=== PATIENT | male | born 1965 | race Caucasian/White ===

== ENCOUNTER 2019-04-07 09:22 | Observation (INO) | payer OTHER ==
[2019-04-07] MEDS ORDERED: SODIUM CHLORIDE 0.9% 1,000 ML IV STA (10:14)
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
[2019-04-07 10:54] LABS: Appearance,Urine Clear (Clear); Bilirubin,Urine Negative (Negative); Blood,Urine Negative (Negative); Color,Urine Yellow; Glucose,Urine (UA) Negative (Negative); Ketones,Urine Negative (Negative); Leukocyte Esterase,Urine Trace (Negative); Nitrite,Urine Negative (Negative); Protein,Urine Negative (Negative); Specific Gravity,Urine 1.025 (1.001-1.035); Squamous Epithelial Cell,Urine <1 /hpf (0-4); Urobilinogen,Urine <2.0 mg/dL (<2.0); WBC,Urine 3 /hpf (0-5)
[2019-04-07 10:56] LABS: Basophils % (A) 1 %; Eosinophils # (A) 0.1 k/uL (0-0.7); Eosinophils % (A) 2 %; HCT 35.3 % (39.0-53.0); HGB 11.9 gm/dL (13.0-17.5); Lymphocytes # (A) 1.2 k/uL (1.0-4.8); Lymphocytes % (A) 27 %; MCH 29.7 pg (25.0-35.0); MCHC 33.7 g/dL (31.0-37.0); Mean Platelet Volume 7.5; Monocytes # (A) 0.2 k/uL (0-1.0); Monocytes % (A) 5 %; Neutrophils # (A) 2.8 k/uL (1.3-7.7); Neutrophils % (A) 63 %; Platelet Count 208 k/uL (150-450); RBC 4.01 m/uL (4.30-5.90); RDW 11.9 % (11.5-15.5); WBC 4.4 k/uL (3.8-10.6)
[2019-04-07 11:05] LABS: ALT 32 U/L (4-49); AST 36 U/L (17-59); African American GFR (CKD) >90 (>60 ml/min/1.73 sqM); Albumin 3.8 g/dL (3.5-5.0); Alkaline Phosphatase 98 U/L (38-126); Amylase 69 U/L (30-110); Anion Gap 7 mmol/L; Blood Urea Nitrogen 42 mg/dL (9-20); Calcium 9.8 mg/dL (8.4-10.2); Carbon Dioxide 31 mmol/L (22-30); Chloride 102 mmol/L (98-107); Glucose 139 mg/dL (74-99); Non-African American GFR(CKD) >90 (>60 ml/min/1.73 sqM); Potassium 4.1 mmol/L (3.5-5.1); Sodium 140 mmol/L (137-145); Total Bilirubin 0.8 mg/dL (0.2-1.3); Total Protein 6.8 g/dL (6.3-8.2)
--- NOTE | 2019-04-07 12:06 | CT ---
EXAMINATION TYPE: CT abdomen pelvis w con DATE OF EXAM: 04/07/2019 COMPARISON: None INDICATION: Epigastric pain weight loss nausea vomiting DLP: 1009.7 mGycm, Automated exposure control for dose reduction was used. CONTRAST: 100 mL of Isovue 300. Study performed without Oral Contrast TECHNIQUE: Axial images were obtained from above the diaphragm to the pubic rami in the axial plane a t 5 mm thick sections. Reconstructed images are reviewed on the computer in the coronal plane. Exam is somewhat limited due to paucity of abdominal fat. FINDINGS: Limited CT sections are obtained the lung bases. The lung bases are clear. Small hiatal hernia is p resent. CT ABDOMEN: Liver: Normal Spleen: Normal Pancreas: Normal Adrenal glands: The adrenal glands are normal. Gallbladder: Normal Kidneys: No masses are evident. No hydronephrosis is present. No cysts are present. Delayed images were obtained through the kidneys, which remain unremarkable. Aorta: Normal Inferior vena cava: Normal. CT PELVIS: Loops of bowel within the abdomen and pelvis are normal. Few diverticuli are through the sigmoid co marie without evidence of acute diverticulitis. There are loops of bowel which are incompletely disten ded or lack oral contrast limiting their evaluation. Appendix: Normal as visualized. Urinary bladder: Normal. Genitourinary structures: Osseous structures: No suspicious lytic or sclerotic lesions. IMPRESSIONS: 1. Diverticulosis without acute diverticulitis. 2. Small hiatal hernia. 3. No other suspicious abnormality to account for epigastric pain or weight loss
[2019-04-07] MEDS ORDERED: NALOXONE 0.4 MG/ML 1 ML VIAL IV PRN (13:00)
[2019-04-07] MEDS ORDERED: ACETAMINOPHEN TAB 325 MG TAB PO PRN (13:00)
[2019-04-07] MEDS ORDERED: ONDANSETRON 4 MG/2 ML VIAL IVP PRN (13:00)
[2019-04-07 13:42] VITALS: RESP 18
[2019-04-07] MEDS: SODIUM CHLORIDE 0.9% 1,000 ML IV SCH (13:56)
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
[2019-04-08] MEDS: SODIUM CHLORIDE 0.9% 1,000 ML IV SCH (05:11)
[2019-04-08 07:54] VITALS: TEMP 97.6
[2019-04-08 11:38] VITALS: BMI 22.7
[2019-04-08] MEDS ORDERED: LIDOCAINE 1% INJ 10MG/ML (20 ML MDV) ONE (14:14)
[2019-04-08] MEDS ORDERED: PROPOFOL 10 MG/ML 20 ML VIAL IV ONE (14:14)
[2019-04-08] MEDS ORDERED: IV FLUID CONTINUATION 1,000 ML IV ONE (14:17)
--- NOTE | 2019-04-08 14:33 | P.PCN ---
Date of Procedure: 04/08/19 Procedure(s) Performed: BRIEF HISTORY: Patient is a 54-year-old, pleasant, white male admitted hospital with severe progressive dysphagia for the last 2 years duration. He lost approximately 70 pounds since onset of the symptoms. He has severe passive regurgitation and occasional heartburn. CT of abdomen was negative. His and scheduled for an upper endoscopy to evaluate further. PROCEDURE PERFORMED: Esophagoscopy with biopsy and dilation. PREOPERATIVE DIAGNOSIS: Progressive dysphagia to solids and weight loss of 70 pounds for the last 2 years duration. IV sedation per anesthesia. PROCEDURE: After informed consent was obtained, the patient was brought into the endoscopy unit. IV sedation was administered by Anesthesia under continuous monitoring. Initially the Olympus GIF-140 video endoscope was inserted into the mouth. Esophagus intubated without any difficulty. It was gradually advanced into the distal esophagus and there was a tight stricture identified at 40 cm from the incisors. The scope could not be advanced through the stricture. At this time I proceeded with a balloon dilation using 8-10 mm TTS balloon for total of 90 seconds and a sequential fashion. There were thickened folds noted in the distal esophagus at the site of esophageal stricture. Despite dilation was still not able to advance the scope into the stomach. Multiple biopsies were done from the mucosal folds of the distal esophagus. No obvious masses identified. The GE junction was located at 39 cm from the incisors. The rest of the esophagus appeared normal and the patient tolerated the procedure well. IMPRESSION: 1. Tight distal esophageal stricture with mucosal erythema, edema and thickened mucosal folds status post balloon dilation using 8-10 mm TTS balloon as described above. 2. Scope could not be advanced into the stomach.. RECOMMENDATIONS: The findings of this examination were discussed with the patient as well as his family. He'll remain on a clear liquid diet. We'll start him on Protonix 40 mg twice daily. He can be discharged home today or tomorrow with outpatient follow-up in one week..
[2019-04-08 15:37] VITALS: BP 120/63; PULSE 68
[2019-04-08] MEDS ORDERED: PANTOPRAZOLE 40 MG/10 ML VIAL IVP SCH (21:00)
--- NOTE | 2019-04-12 16:37 | HP ---
HISTORY AND PHYSICAL HISTORY OF PRESENT ILLNESS: A 54-year-old white male presents with nausea, vomiting, weight loss, ongoing for a year, went to PCP, told him to come to the ER. Had intermittent epigastric pain, 40 pounds loss in 6 months, unable to keep anything down. 60 pounds weight loss in 6 months. Unable to keep any liquid and solids down. PAST MEDICAL HISTORY: History of splenectomy and pyloric stenosis as a kid. REVIEW OF SYSTEMS: Fourteen-point review of systems negative except for mentioned in HPI. VITAL SIGNS: Temp 97.1, respiratory rate 16 to 18, blood pressure 120s to 130s over 70s to 80. 100% on room air. Pulse is 70s to 80s. GI soft, nontender. NEUROLOGIC: Cranial nerves are intact. PSYCH: Fair mood and affect. SKIN: Warm and dry. ABDOMEN: Soft, nontender. White count 4.4, hemoglobin 11.9, BUN 42, creatinine 0.95. UA is negative. ASSESSMENT: Weight loss, nausea, vomiting, epigastric pain, dehydration. Admit the patient. Rehydrate him. Get the EGD. Further orders pending Gastroenterology consult for an EGD recommendations. MMODL / IJN: [id number] /
--- NOTE | 2019-04-14 06:10 | DS ---
DISCHARGE SUMMARY A 54-year-old white male who was admitted for progressive dysphagia over the past 2 years, losing 70 pounds. He has severe passive regurgitation and heartburn. CT was negative. His EGD was scheduled and performed it. Had esophagitis with some biopsies, was given Protonix 40 mg a day and sent home. He also had a tight stricture at the lower esophageal stomach border for which patient had esophageal stricture repair with multiple biopsies. Biopsies showed high-grade dysplasia, felt to await further pathology where it was sent to the [facility]. He will continue on Protonix 40 mg b.i.d. and discharged home, have to follow up in the office after pathology from [facility] is back. No smoking. No late night eating. Head of bed elevation. MMODL / IJN: [id number] /
== END 2019-04-08 16:05 | disposition home or self-care (01) ==
LOC: EC 09:22 → 1SOBS 13:07
PROVIDERS: ADMIT Family Medicine; ATTEND Family Medicine
DX: K22.2 Esophageal obstruction (principal); R13.10 Dysphagia, unspecified; R63.4 Abnormal weight loss; E86.0 Dehydration; K57.90 Diverticulosis of intestine, part unspecified, without perforation or abscess without bleeding; Z87.738 Personal history of other specified (corrected) congenital malformations of digestive system; Z90.81 Acquired absence of spleen
CPT/HCPCS: 96360; 99285; 36415; 88305; 80053; 82150; 83690; 85025; 81001; 74177; 43239; 43249; G0378 ×2; J2001; J2704; Q9967; C1726

== ENCOUNTER 2019-06-05 06:29 | Day surgery (SDC) | payer OTHER ==
[~2019-06-05 06:29] MED LIST: LACTATED RINGERS 1,000 ML IV SCH; LIDOCAINE 1% (10MG/ML) FOR IV START INTRADERMA PRN
[2019-06-05 06:43] VITALS: RESP 16; TEMP 97.4
[2019-06-05] MEDS ORDERED: LIDOCAINE 1% INJ 10MG/ML (20 ML MDV) ONE (06:59)
[2019-06-05] MEDS ORDERED: PROPOFOL 10 MG/ML 20 ML VIAL IV ONE (06:59)
--- NOTE | 2019-06-05 07:25 | P.PCN ---
Date of Procedure: 06/05/19 Procedure(s) Performed: BRIEF HISTORY: Patient is a 54-year-old, pleasant, white male scheduled for an upper endoscopy for evaluation of progressive dysphagia to solids and weight loss for the last 1 year duration. He had an upper endoscopy done by me in April of this year that revealed a tight distal esophageal stricture that was dilated with a 10 mm balloon but the scope could not be advanced any further. Biopsies revealed squamocolumnar mucosa with high-grade dysplasia. His and his and scheduled for repeat upper endoscopy with biopsies for definitive diagnosis.. PROCEDURE PERFORMED: Esophagoscopy with multiple biopsies and dilation. PREOPERATIVE DIAGNOSIS: Distal esophageal stricture with high-grade dysplasia on recent upper endoscopy. IV sedation per anesthesia. PROCEDURE: After informed consent was obtained, the patient was brought into the endoscopy unit. IV sedation was administered by Anesthesia under continuous monitoring. Initially the Olympus GIF-140 video endoscope was inserted into the mouth. Esophagus intubated without any difficulty. It was gradually advanced into the distal esophagus and at 39-40 cm from the incisors there was a very tight esophageal stricture identified with small amount of retained liquid in the proximal esophagus. The scope could not be advanced to the stricture. At this time I proceeded with a balloon dilation using 8-10 mm TTS balloon in a sequential fashion for 90 seconds. Following this despite multiple attempts I was not able to advance the scope into the stomach. At this time I proceeded with multiple biopsies of the esophageal stricture with the mucosa appeared very friable, erythematous with thickened mucosal folds but no obvious masses identified. There was mild dilation of the esophagus just proximal to the stricture area and The rest of the esophagus appeared normal and the patient tolerated the procedure well. IMPRESSION: 1. Tight distal esophageal stricture with mucosal erythema friability and thickened folds but no obvious mass status post balloon dilation followed by multiple biopsies to rule out malignancy. 2. Scope could not be advanced into the stomach and duodenum. RECOMMENDATIONS: The findings of this examination were discussed with the patient as well as his family. He will be seen in office in 5 days to discuss the biopsy results.
[2019-06-05 07:52] VITALS: BP 106/58; PULSE 57
== END 2019-06-05 08:24 | disposition home or self-care (01) ==
LOC: ORWHC2ENDO 06:29
PROVIDERS: ATTEND Internal Medicine Gastroenterology
DX: C15.5 Malignant neoplasm of lower third of esophagus (principal); K22.2 Esophageal obstruction; Z79.899 Other long term (current) drug therapy; Z98.890 Other specified postprocedural states; Z87.81 Personal history of (healed) traumatic fracture
CPT/HCPCS: 88305; 43239; 43249; J2001; J2704; C1726

== ENCOUNTER → 2019-06-20 | Outpatient (CLI) | payer OTHER ==
--- NOTE | 2019-06-23 06:53 | PE ---
EXAMINATION TYPE: PET CT fusion skull to thigh DATE OF EXAM: 06/20/2019 COMPARISON: CT abdomen and pelvis April 07, 2019. HISTORY: Esophageal cancer TECHNIQUE: Following the intravenous administration of 12.17 mCi of F-18 FDG, whole body images are performed from the skull base to the midthigh. Images are reviewed on the computer in the coronal, a xial, and sagittal planes. Reconstructed rotating images are created on independent workstation and reviewed on the computer. A noncontrast CT is performed in conjunction with the PET scan. SCAN: Initial Scan FINDINGS: SKULL BASE AND NECK: No suspicious hypermetabolic uptake. CHEST, MEDIASTINUM, AND HILAR REGION: There is concentric wall thickening distal esophagus redemonstr ated just above diaphragm beginning near axial image 127 through 136, hypermetabolic uptake is presen t images 127 through 132, max SUV is 6.65 on image 131. No additional areas of suspicious hypermetabolic uptake are present in the remainder of the thorax. N o suspicious adjacent lymph nodes seen. No abnormal uptake or extension below the diaphragm clearly i dentified. ABDOMEN AND PELVIS: Normal excretion is seen. Patient has very little intra-abdominal fat. No suspici ous hypermetabolic uptake. OSSEOUS STRUCTURES: No suspicious hypermetabolic uptake. OTHER CT: Patient has very little intra-abdominal fat. No significant incidental findings. IMPRESSION: Hypermetabolic uptake in the distal esophagus corresponds to known neoplasm. No metastati c disease is evident.
== END | disposition home or self-care (01) ==
LOC: RADPETMAIN 14:08
PROVIDERS: ATTEND Internal Medicine Hematology & Oncology
DX: C15.5 Malignant neoplasm of lower third of esophagus (principal)
CPT/HCPCS: 78815; A9552

== ENCOUNTER → 2019-09-18 | Outpatient (CLI) | payer OTHER ==
--- NOTE | 2019-09-21 09:18 | PE ---
EXAMINATION TYPE: PET CT fusion skull to thigh DATE OF EXAM: 09/18/2019 COMPARISON: Prior PET/CT June 20, 2019. Prior CT abdomen and pelvis April 07, 2019. HISTORY: Esophageal cancer progress study originally diagnosed and endoscopy with biopsy April and recently completed chemotherapy and radiation treatment per patient. TECHNIQUE: Following the intravenous administration of 10.37 mCi of F-18 FDG, whole body images are performed from the skull base to the midthigh. Images are reviewed on the computer in the coronal, a xial, and sagittal planes. Reconstructed rotating images are created on independent workstation and reviewed on the computer. A noncontrast CT is performed in conjunction with the PET scan. SCAN: Subsequent Scan FINDINGS: SKULL BASE AND NECK: Marked symmetric bilateral uptake at level of the masseter muscles along with s ome mild uptake at the level of the tongue is presumed product of significant recent use of mouth pos sibly from ingesting food just prior to exam. This makes examination suboptimal. No areas of new suspicious hypermetabolic uptake. CHEST, MEDIASTINUM, AND HILAR REGION: Persistent moderate to severe concentric wall thickening in the distal esophagus just above diaphragm with mild hypermetabolic uptake, max SUV less than 2.5. No new areas of suspicious hypermetabolic uptake. ABDOMEN AND PELVIS: Normal excretion is present. No new areas of abnormal hypermetabolic uptake. OSSEOUS STRUCTURES: No new areas of abnormal hypermetabolic uptake. OTHER CT: Patient has very little intra-abdominal fat making evaluation suboptimal similar to prior. Some new posterior left basilar linear atelectasis just above diaphragm is present. Osseous structure s are intact. IMPRESSION: Suboptimal study, no residual or new areas of abnormal hypermetabolic uptake to suggest a ctive malignancy are identified. Complete positive treatment response.
== END | disposition home or self-care (01) ==
LOC: RADPETMAIN 11:19
PROVIDERS: ATTEND Internal Medicine Hematology & Oncology
DX: C15.5 Malignant neoplasm of lower third of esophagus (principal)
CPT/HCPCS: 78815; A9552

== ENCOUNTER → 2020-07-16 | Outpatient (CLI) | payer OTHER ==
--- NOTE | 2020-07-18 08:56 | PE ---
EXAMINATION TYPE: PET CT fusion skull to thigh DATE OF EXAM: 07/16/2020 COMPARISON: Prior PET/CT September 18, 2019 and older studies HISTORY: Esophageal cancer progress study originally diagnosed by endoscopy with biopsy April and c ompleted chemotherapy and radiation treatment in July or August 2019 per patient. TECHNIQUE: Following the intravenous administration of 13.76 mCi of F-18 FDG, whole body images are performed from the skull base to the midthigh. Images are reviewed on the computer in the coronal, a xial, and sagittal planes. Reconstructed rotating images are created on independent workstation and reviewed on the computer. A localization and attenuation correction CT is performed in conjunction with the PET scan. Blood glucose level equals 98. SCAN: Subsequent Scan FINDINGS: SKULL BASE AND NECK: No areas of new suspicious hypermetabolic uptake on current study. CHEST, MEDIASTINUM, AND HILAR REGION: Persistent moderate to severe concentric wall thickening in the distal esophagus just above diaphragm from axial image 124 through 135. Prior visualized mild hyperm etabolic uptake appear to correspond to central aspect or lumen on prior study. On current study ther e is new more focal mild hypermetabolic uptake along the left posterior aspect centered image 129, ma x SUV is 2.87. Recurrent active neoplasm needs to be considered. ABDOMEN AND PELVIS: Normal excretion is present. No new areas of abnormal hypermetabolic uptake. OSSEOUS STRUCTURES: No new areas of abnormal hypermetabolic uptake. OTHER CT: Patient has very little intra-abdominal fat making evaluation suboptimal similar to prior. Lungs are currently clear. No new findings are evident. IMPRESSION: New suspicious focal mild increased hypermetabolic uptake worrisome for local active neop lastic recurrence distal esophageal level. No new metastatic disease noted.
== END | disposition home or self-care (01) ==
LOC: RADPETMAIN 09:02
PROVIDERS: ATTEND Family Medicine
DX: C15.9 Malignant neoplasm of esophagus, unspecified (principal)
CPT/HCPCS: 78815; A9552

== ENCOUNTER 2020-07-25 09:16 | Day surgery (SDC) | payer OTHER ==
[2020-07-21 15:01] VITALS: BMI 23.1
[2020-07-25 09:35] VITALS: TEMP 97.8
[2020-07-25] MEDS ORDERED: LIDOCAINE 1% INJ 10MG/ML (20 ML MDV) ONE (10:00)
[2020-07-25] MEDS ORDERED: PROPOFOL 10 MG/ML 20 ML VIAL IV ONE (10:00)
--- NOTE | 2020-07-25 10:20 | P.PCN ---
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 Lately has been complaining of dysphagia for the last 6 months duration with weight loss of 20 pounds. He is on a soft diet. He had a PET scan that he can go that did show increased uptake in the distal esophagus and no other metastasis noted.. He scheduled for an upper endoscopy with dilation today. PROCEDURE PERFORMED: Esophagoscopy with biopsy and dilation. PREOPERATIVE DIAGNOSIS: History of esophageal cancer diagnosed have a 2020 status post chemo/radiation therapy/now with progressive dysphagia to solids. IV sedation per anesthesia. PROCEDURE: After informed consent was obtained, the patient was brought into the endoscopy unit. IV sedation was administered by Anesthesia under continuous monitoring. Initially the Olympus GIF-140 video endoscope was inserted into the mouth. Esophagus intubated without any difficulty. It was gradually advanced into the distal esophagus. There was a tight esophageal stricture identified at the scope could not be advanced through the stricture. The luminal diameter was about 84 mm. At this time I proceeded with balloon dilation. The balloon was passed through the stricture without any difficulty and was dilated to 8 mm, 9 mm and 10 mm sequentially for 90 seconds. Following this there was oozing identified and the site of dilation. I was not able to advance the scope into the stomach. The mucosa appeared slightly friable but there were no obvious mass identified. Multiple biopsies were done from the distal esophagus. The GE junction was located at 40 cm from the incisors. The rest of the esophagus appeared normal. The patient tolerated the procedure well. IMPRESSION: 1. Tight distal esophageal stricture with friable mucosa status post balloon dilation using 8, 9 and 10 mm TTS balloon as described above. 2. No obvious distal esophageal mass identified, however the scope could be advanced into the stomach because of the tight esophageal stricture. RECOMMENDATIONS: The findings of this examination were discussed with the patient as well as a family. He was advised to remain on a clear liquid diet today. We'll await biopsy results and he'll be seen in office in 2 weeks.
[2020-07-25 11:02] VITALS: BP 112/72; PULSE 56; RESP 16
== END 2020-07-25 11:27 | disposition home or self-care (01) ==
LOC: ORWHC2ENDO 09:16
PROVIDERS: ATTEND Internal Medicine Gastroenterology
DX: K22.2 Esophageal obstruction (principal); R63.4 Abnormal weight loss; Z85.01 Personal history of malignant neoplasm of esophagus; Z92.21 Personal history of antineoplastic chemotherapy; Z92.3 Personal history of irradiation; Z88.6 Allergy status to analgesic agent; Z79.899 Other long term (current) drug therapy
CPT/HCPCS: 88305; 43239; 43249; J2001; J2704; C1726

== ENCOUNTER 2020-11-30 11:14 | Day surgery (SDC) | payer OTHER ==
[2020-11-30 11:28] VITALS: TEMP 97.7
[2020-11-30] MEDS ORDERED: LACTATED RINGERS 1,000 ML IV ONE (11:28)
[2020-11-30] MEDS ORDERED: LIDOCAINE 1% INJ 10MG/ML (20 ML MDV) ONE (12:14)
[2020-11-30] MEDS ORDERED: PROPOFOL 10 MG/ML 20 ML VIAL IV ONE (12:14)
--- NOTE | 2020-11-30 12:26 | P.PCN ---
Date of Procedure: 11/30/20 Procedure(s) Performed: BRIEF HISTORY: Patient is a 55-year-old, pleasant, white male with history of esophageal adenocarcinoma diagnosed in May 2019, status post radiation as well as chemotherapy. An upper endoscopy done in June 2020 that showed tight distal esophagus which was dilated. He did well for a few months and now with worsening dysphagia to solids. Hence scheduled for an upper endoscopy with dilation today.. PROCEDURE PERFORMED: Esophagogastroduodenoscopy with dilation and biopsy PREOPERATIVE DIAGNOSIS: History of esophageal cancer diagnosed in 2019 status post chemoradiation therapy, now with worsening dysphagia. IV sedation per anesthesia. PROCEDURE: After informed consent was obtained, the patient was brought into the endoscopy unit. IV sedation was administered by Anesthesia under continuous monitoring. Initially the Olympus GIF-140 video endoscope was inserted into the mouth. Esophagus intubated without any difficulty. It was gradually advanced into the distal esophagus and there was a tight stricture noted. The scope could not be advanced and the stricture. The diameter of the opening was about 3 mm. At this time I proceeded with balloon dilation using 8-10 mm TTS balloon in a sequential fashion for 90 seconds. Following this there was some oozing noted at the site of dilation but I was not able to advance the scope into the stomach. The The GE junction was located at 39 cm from the incisors. There was no obvious mass identified. The mucosa appeared somewhat erythematous and thickened at the site of the stricture and biopsies were done from this area. The rest of the esophagus appeared slightly dilated with retained food in the st omach there was thoroughly aspirated. The patient tolerated the procedure well. . IMPRESSION: 1. Tight distal esophageal stricture status post balloon dilation using 8-10 mm balloon as described above. 2. Thickened folds in the distal esophagus but no obvious mass noted. Status post multiple biopsies. RECOMMENDATIONS: The findings of this examination were discussed with the patient as well as his family. He was advised to remain on a clear liquid diet today. Await biopsy results..
[2020-11-30 12:33] VITALS: RESP 16
[2020-11-30 13:00] VITALS: BP 129/83; PULSE 61
== END 2020-11-30 13:10 | disposition home or self-care (01) ==
LOC: ORWHC2ENDO 11:14
PROVIDERS: ATTEND Internal Medicine Gastroenterology
DX: K22.2 Esophageal obstruction (principal); Z85.01 Personal history of malignant neoplasm of esophagus; Z92.21 Personal history of antineoplastic chemotherapy; Z92.3 Personal history of irradiation; Z79.82 Long term (current) use of aspirin
CPT/HCPCS: 43239; 43249; J2001; J2704; 88305

== ENCOUNTER → 2020-12-16 | Outpatient (CLI) | payer OTHER ==
--- NOTE | 2020-12-21 10:10 | PE ---
Nuclear medicine PET/CT HISTORY: C 15.5, esophageal carcinoma, subsequent Patient received 13.4 mCi F-18 FDG intravenously in delayed scanning was performed from the skull bas e to the mid thighs. A localization and attenuation correction CT scan was performed, correlation to prior exam 07/16/2020 Chest and neck: There is no cervical or supraclavicular adenopathy. No mediastinal, axillary, or thompson r adenopathy. There is an interval development of circumferential wall thickening at the level of the distal esophagus, retained secretions are present within the esophagus. There is corresponding incre ase in the hypermetabolic uptake involving the distal esophagus, SUV is 4.9. There is soft tissue fabiola ng the cardiophrenic angle anteriorly with some mild associated uptake present, abnormality is pleura l-based and measures approximately 2 cm, SUV is 2.3, an interval finding. No pleural or pericardial e ffusion. ABDOMEN: No evident liver mass or upper abdominal adenopathy. No suspicious uptake. There is no ascit es. Patient is cachectic. Osseous structures show no suspicious uptake. Postop change suspected on the right ilium posteriorly on the right. Suspect physiologic uptake along the musculature of the proximal right lower extremity medially, SUV is 1.9-2. IMPRESSION: Interval development of hypermetabolic soft tissue which is pleural-based in the anterior aspect of the right lower hemithorax. Interval progression in hypermetabolic uptake at the level of the distal esophagus. Additional findings above.
== END | disposition home or self-care (01) ==
LOC: RADPETMAIN 07:37
PROVIDERS: ATTEND Internal Medicine Hematology & Oncology
DX: C15.5 Malignant neoplasm of lower third of esophagus (principal); M79.89 Other specified soft tissue disorders
CPT/HCPCS: 78815; A9552

== ENCOUNTER 2021-01-11 08:54 | Day surgery (SDC) | payer OTHER ==
[2021-01-09 09:51] VITALS: BMI 19.2
[2021-01-11 09:20] VITALS: RESP 16; TEMP 97.6
[2021-01-11] MEDS ORDERED: PROPOFOL 10 MG/ML 20 ML VIAL IV ONE (10:06)
[2021-01-11] MEDS ORDERED: LIDOCAINE 1% INJ 10MG/ML (20 ML MDV) ONE (10:06)
--- NOTE | 2021-01-11 10:19 | P.PCN ---
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 He was status post chemo followed by radiation therapy and subsequently developed a tight distal esophageal stricture. He underwent an EGD with dilation a month ago. Because of persistent symptoms he scheduled for repeat upper endoscopy with dilation today.. PROCEDURE PERFORMED: Esophagogastroduodenoscopy with dilation and biopsy. PREOPERATIVE DIAGNOSIS: Progressive dysphagia to solids and weight loss/distal esophageal stricture. IV sedation per anesthesia. PROCEDURE: After informed consent was obtained, the patient was brought into the endoscopy unit. IV sedation was administered by Anesthesia under continuous monitoring. Initially the Olympus GIF-140 video endoscope was inserted into the mouth. Esophagus intubated without any difficulty. It was gradually advanced into the distal esophagus where there was a tight esophageal stricture identified and the scope could not be advanced through the stricture. At this time I proceeded with balloon dilation using 10-12 mm TTS balloon in a sequential fashion for 30 seconds. Findings with dilation was still not able to advance the scope through the stricture. The mucosa of the stricture appeared friable but no mass lesion identified. Multiple biopsies were done from the distal esophageal stricture. The rest of the sophagus appeared normal. and the patient tolerated the procedure well. IMPRESSION: 1.. Tight distal esophageal stricture with thickened mucosal fold status post balloon dilation using 10-12 mm TTS balloon as described above. 2. Scope could not be advanced through the stricture. RECOMMENDATIONS: The findings of this examination were discussed with the patient is well as his family. He will remain on clear liquid diet today. await biopsy results. Follow with Dr. Whaley, as scheduled.
[2021-01-11 10:38] VITALS: BP 154/91; PULSE 68
== END 2021-01-11 10:46 | disposition home or self-care (01) ==
LOC: ORWHC2ENDO 08:54
PROVIDERS: ATTEND Internal Medicine Gastroenterology
DX: K22.2 Esophageal obstruction (principal); Z85.01 Personal history of malignant neoplasm of esophagus; Z92.21 Personal history of antineoplastic chemotherapy; Z92.3 Personal history of irradiation; F98.8 Other specified behavioral and emotional disorders with onset usually occurring in childhood and adolescence; F41.9 Anxiety disorder, unspecified; F32.9 Major depressive disorder, single episode, unspecified; Z88.6 Allergy status to analgesic agent; Z79.899 Other long term (current) drug therapy
CPT/HCPCS: 88305; 43239; 43249; J2001; J2704; C1726

== ENCOUNTER → 2021-02-03 | Outpatient (CLI) | payer OTHER ==
--- NOTE | 2021-02-03 12:36 | ECHOF ---
Referral Reason:Z01.818 Chemo exposure MEASUREMENTS -------- HEIGHT: 188.0 cm WEIGHT: 70.3 kg BP: RVIDd: 3.8 cm (< 3.3) IVSd: 1.2 cm (0.6 - 1.1) LVIDd: 5.4 cm (3.9 - 5.3) LVPWd: 1.3 cm (0.6 - 1.1) IVSs: 1.4 cm LVIDs: 4.0 cm LVPWs: 1.7 cm LAESV Index (A-L): 27.49 ml/m Ao Diam: 3.4 cm (2.0 - 3.7) AV Cusp: 2.4 cm (1.5 - 2.6) LA Diam: 2.9 cm (2.7 - 3.8) MV EXCURSION: 14.054 mm (> 18.000) MV EF SLOPE: 101 mm/s (70 - 150) EPSS: 1.0 cm MV E Jessee: 0.74 m/s MV DecT: 106 ms MV A Jessee: 1.01 m/s MV E/A Ratio: 0.73 RAP: 5.00 mmHg RVSP: 31.32 mmHg FINDINGS -------- Sinus rhythm. This was a technically good study. The left ventricular size is normal. There is mild concentric left ventricular hypertrophy. Overa ll left ventricular systolic function is low-normal with, an EF between 50 - 55 %. The right ventricle is mild to moderately enlarged. Normal LA size by volume 22+/-6 ml/m2. A mass adjacent to the LA was seen almost ao all views The right atrial size is normal. Eustachian valve seen in the right atrium (normal finding). Interatrial and interventricular septum intact. The aortic valve is trileaflet and appears structurally normal. There is no evidence of aortic regu rgitation. There is no evidence of aortic stenosis. No mitral regurgitation. Mild tricuspid regurgitation present. There is no evidence of pulmonary hypertension. The right v entricular systolic pressure, as measured by Doppler, is 31.32mmHg. There is no pulmonic regurgitation present. The aortic root size is normal. IVC Not well visulized. There is no pericardial effusion. CONCLUSIONS -------- 1. The left ventricular size is normal. 2. There is mild concentric left ventricular hypertrophy. 3. Overall left ventricular systolic function is low-normal with, an EF between 50 - 55 %. 4. The right ventricle is mild to moderately enlarged. 5. A mass adjacent to the LA was seen almost ao all views 6. Mild tricuspid regurgitation present. CHEF BROILER OR FRY: Lolis Arora RDCS
== END | disposition home or self-care (01) ==
LOC: RADECHMAIN 11:28
PROVIDERS: ATTEND Internal Medicine Hematology & Oncology
DX: I07.1 Rheumatic tricuspid insufficiency (principal)
CPT/HCPCS: 93306

== ENCOUNTER → 2021-02-03 | Day surgery (SDC) | payer OTHER ==
[2021-02-01 09:26] VITALS: BMI 18.4
[~2021-02-03] MED LIST changes: +BUPIVACAINE (PF) 0.25% 30 ML VIAL SQ ONE; +DEXAMETHASONE SOD PHOSPHATE 4 MG/ML 1 ML VIAL IV ONE; +HEPARIN SODIUM,PORCINE 100 UNIT/ML 5 ML VIAL IV ONE; +HEPARIN SODIUM,PORCINE/PF 5,000 UNIT/0.5 ML SYRINGE SQ PRN; +LIDOCAINE 1% INJ 10MG/ML (20 ML MDV) ONE; +MIDAZOLAM 2 MG/2 ML VIAL ONE; +ONDANSETRON 4 MG/2 ML VIAL ONE; +PROPOFOL 10 MG/ML 20 ML VIAL IV ONE; +Pre Op ABX Message 1 EACH MISC MISCELLANE ONE; +SUCCINYLCHOLINE CHLORIDE 100 MG/5 ML SYR IV ONE; +fentaNYL (PF) 50 MCG/ML 2 ML AMP ONE
--- NOTE | 2021-02-03 14:05 | P.OP ---
Date of Procedure: 02/03/21 Preoperative Diagnosis: Esophageal cancer Postoperative Diagnosis: Esophageal cancer Procedure(s) Performed: Mediport placement with fluoroscopy Anesthesia: PENELOPE Surgeon: Nimisha Perez Pathology: none sent Condition: stable Disposition: same day Indications for Procedure: 55-year-old male with recent diagnosis of esophageal cancer. After discussion with his oncologist, patient has opted for chemotherapy. He states that he is able to tolerate oral intake and is refusing PEG tube placement. Risks, benefits and alternatives were provided to the patient for Mediport placement. He is provided consent prior to attending the operating suite. Operative Findings: Appropriate flush and withdraw from Mediport site Description of Procedure: The patient was brought to the operating suite and placed in supine position on the operating table. Sedation was provided by anesthesia the patient underwent endotracheal intubation. The patient was then prepped and draped in regular sterile fashion. Local anesthetic was administered and the anticipated insertion site for venous access and anticipated pocket patient for Mediport. Introducer needle was placed and the right subclavian vein was accessed on first attempt. Guidewire was then placed. Guidewire location was confirmed under fluoroscopic guidance. At this point incision was made just below the guidewire and pocket for Mediport was created using cautery. Hemostasis was maintained. A tunnel was created from the guidewire insertion site to the pocket and catheter was placed through this tunnel. Under fluoroscopic guidance, dilator sheath was placed over the guidewire and into the subclavian vein. The catheter was then guided through the dilator sheath and was noted to be in appropriate position. The catheter was then cut and attached to the Mediport and locked into place. Kate needle was introduced and saline flush was noted to both flush and withdraw appropriately. The Mediport was then sutured into place on the right chest wall pectoralis fascia. This was completed with 2 separate 2-0 Prolene suture. Fluoroscopic guidance was used to confirm no kinking of the catheter. Heparin flush was then injected into the port. Wound was irrigated. Wound was then closed with 4-0 Vicryl subcuticular suture. Sterile dressing was applied. The patient was awakened in the operating suite and taken to postanesthesia care unit with pending chest x-ray.
[2021-02-03 14:06] VITALS: TEMP 97.9
--- NOTE | 2021-02-03 14:17 | FL ---
EXAMINATION TYPE: FL guided central line placemt HISTORY: Fluoroscopy time Impression: 1. Fluoroscopy support provided to the referring physician. 30 seconds provided.
--- NOTE | 2021-02-03 14:20 | XR ---
EXAMINATION TYPE: XR chest 1V DATE OF EXAM: 02/03/2021 COMPARISON: NONE HISTORY: Mediport placement TECHNIQUE: Single frontal view of the chest is obtained. FINDINGS: There is no focal air space opacity, pleural effusion, or pneumothorax seen. The cardiac silhouette size is within normal limits. The osseous structures are intact. Mediport catheter seen with the tip overlying the SVC. No overt failure. Heart size normal. Hyperinflation suggests COPD. IMPRESSION: No acute process.
[2021-02-03 14:28] VITALS: RESP 16
[2021-02-03 14:59] VITALS: BP 117/75; PULSE 71
== END | disposition home or self-care (01) ==
LOC: OR 11:29
PROVIDERS: ATTEND Surgery
DX: Z45.2 Encounter for adjustment and management of vascular access device (principal); C15.9 Malignant neoplasm of esophagus, unspecified
CPT/HCPCS: 36561; 77001; 71045; C1788; J2250; J1642; J1100; J2405; J2001; J3010; J0330; J2704; J1644

== ENCOUNTER → 2021-03-30 | Outpatient (CLI) | payer OTHER ==
--- NOTE | 2021-04-03 08:30 | PE ---
EXAMINATION TYPE: PET CT fusion skull to thigh DATE OF EXAM: 03/30/2021 COMPARISON: Prior PET/CT December 16, 2020 and older studies HISTORY: Esophageal cancer originally diagnosed in May 2019 Progress study. On chemotherapy currently. TECHNIQUE: Following the intravenous administration of 19.42 mCi of F-18 FDG, whole body images are performed from the skull base to the midthigh. Images are reviewed on the computer in the coronal, a xial, and sagittal planes. Reconstructed rotating images are created on independent workstation and reviewed on the computer. A localization and attenuation correction CT is performed in conjunction with the PET scan. Blood glucose level equals 131. SCAN: Subsequent Scan FINDINGS: SKULL BASE AND NECK: Symmetric increased uptake bilateral masseter muscles with increased superior d eep right sided uptake presumed product of chewing or eating meal prior to study. Correlate clinicall y. CHEST, MEDIASTINUM, AND HILAR REGION: Persistent moderate to severe concentric wall thickening in the distal esophagus just above diaphragm from axial image 116 through 127. Interval improvement in abno rmal hypermetabolic uptake with Max SUV 3.95 currently versus 4.92 on prior study. No new areas of abnormal hypermetabolic uptake. ABDOMEN AND PELVIS: Normal excretion is present. No new areas of abnormal hypermetabolic uptake. OSSEOUS STRUCTURES: No new areas of abnormal hypermetabolic uptake. OTHER CT: Patient has very little intra-abdominal fat making evaluation suboptimal similar to prior. Lungs remain clear. No new findings are evident. IMPRESSION: Partial positive treatment response as detailed above.
== END | disposition home or self-care (01) ==
LOC: RADPETMAIN 11:01
PROVIDERS: ATTEND Internal Medicine Hematology & Oncology
DX: C15.5 Malignant neoplasm of lower third of esophagus (principal)
CPT/HCPCS: 78815; A9552

== ENCOUNTER 2021-04-19 10:56 | Day surgery (SDC) | payer OTHER ==
[~2021-04-19 10:56] MED LIST changes: -BUPIVACAINE (PF) 0.25% 30 ML VIAL SQ ONE; -DEXAMETHASONE SOD PHOSPHATE 4 MG/ML 1 ML VIAL IV ONE; -HEPARIN SODIUM,PORCINE 100 UNIT/ML 5 ML VIAL IV ONE; -HEPARIN SODIUM,PORCINE/PF 5,000 UNIT/0.5 ML SYRINGE SQ PRN; -LIDOCAINE 1% INJ 10MG/ML (20 ML MDV) ONE; -MIDAZOLAM 2 MG/2 ML VIAL ONE; -ONDANSETRON 4 MG/2 ML VIAL ONE; -PROPOFOL 10 MG/ML 20 ML VIAL IV ONE; -Pre Op ABX Message 1 EACH MISC MISCELLANE ONE; -SUCCINYLCHOLINE CHLORIDE 100 MG/5 ML SYR IV ONE; -fentaNYL (PF) 50 MCG/ML 2 ML AMP ONE
[2021-04-19 11:23] VITALS: TEMP 97.8
[2021-04-19] MEDS ORDERED: LACTATED RINGERS 1,000 ML IV ONE (11:23)
[2021-04-19] MEDS ORDERED: ONDANSETRON 4 MG/2 ML VIAL ONE (11:34)
[2021-04-19] MEDS ORDERED: ONDANSETRON 4 MG/2 ML VIAL IVP ONE (11:36)
[2021-04-19] MEDS ORDERED: PROPOFOL 10 MG/ML 20 ML VIAL IV ONE (11:57)
[2021-04-19] MEDS ORDERED: LIDOCAINE 1% INJ 10MG/ML (20 ML MDV) ONE (11:57)
--- NOTE | 2021-04-19 12:18 | P.PCN ---
Date of Procedure: 04/19/21 Procedure(s) Performed: BRIEF HISTORY: Patient is a 56-year-old, pleasant, white male with history of recurrent distal esophageal adenocarcinoma initially diagnosed in May 2019. Initially had chemo and radiation therapy and subsequently developed recurrent 3 months ago. He is undergoing second bowel movement chemo. He is having progressive dysphagia to solids. Last EGD with dilation wasn't December 2020 that revealed a tight distal esophageal stricture which was dilated at that time. He did well for 3 months.. PROCEDURE PERFORMED: Esophagooscopy with dilation PREOPERATIVE DIAGNOSIS: Distal esophageal stricture/recurrent distal esophageal adenocarcinoma. IV sedation per anesthesia. PROCEDURE: After informed consent was obtained, the patient was brought into the endoscopy unit. IV sedation was administered by Anesthesia under continuous monitoring. Initially the Olympus GIF-140 video endoscope was inserted into the mouth. Esophagus intubated without any difficulty. It was gradually advanced into the esophagus was dilated and there was large amount of liquid material that was aspirated. There was tight distal esophageal stricture once again noted at 40 cm from the incisors with ulcerations noted. Despite multiple times I was unable to advance the scope was stricture. At this time I proceeded with balloon dilation using 10 and 11 mm balloon in the sequential fashion for 60 seconds. Following this there was oozing identified the site of dilation and hence further dilation was not performed. After the dilation was still not able to advance the scope through the stricture.. The rest of the esophagus appeared normal. The patient tolerated the procedure well. IMPRESSION: 1. Tight distal esophageal stricture with mucosal ulcerations noted at 40 cm from the incisors status post balloon dilation using 10 and 11 mm TTS balloon as described above. 2. Dilated esophagus with retained liquids. RECOMMENDATIONS: The findings of this examination were discussed with the patient as well as his family. He was advised to remain on a clear liquid diet for today. Advance as tolerated tomorrow..
[2021-04-19 12:46] VITALS: BP 111/74; PULSE 67; RESP 14
== END 2021-04-19 13:11 | disposition home or self-care (01) ==
LOC: ORWHC2ENDO 10:56
PROVIDERS: ATTEND Internal Medicine Gastroenterology
DX: C15.9 Malignant neoplasm of esophagus, unspecified (principal); K22.2 Esophageal obstruction
CPT/HCPCS: 43249; J2405; J2001; J2704; C1726

== ENCOUNTER → 2021-05-26 | Outpatient (CLI) | payer OTHER ==
--- NOTE | 2021-05-26 17:45 | ECHOF ---
Referral Reason:Z01.818 per chemo MEASUREMENTS -------- HEIGHT: 157.5 cm WEIGHT: 77.1 kg BP: RVIDd: 2.2 cm (< 3.3) IVSd: 0.8 cm (0.6 - 1.1) LVIDd: 5.8 cm (3.9 - 5.3) LVPWd: 0.9 cm (0.6 - 1.1) IVSs: 1.3 cm LVIDs: 4.0 cm LVPWs: 1.8 cm LAESV Index (A-L): 28.30 ml/m Ao Diam: 3.7 cm (2.0 - 3.7) AV Cusp: 2.7 cm (1.5 - 2.6) LA Diam: 3.0 cm (2.7 - 3.8) MV EXCURSION: 20.477 mm (> 18.000) MV EF SLOPE: 164 mm/s (70 - 150) EPSS: 1.8 cm MV E Jessee: 0.73 m/s MV DecT: 152 ms MV A Jessee: 0.96 m/s MV E/A Ratio: 0.77 RAP: 5.00 mmHg RVSP: 36.04 mmHg TAPSE: 33.32 mm FINDINGS -------- Sinus rhythm. This was a technically good study. The left ventricular size is normal. Left ventricular wall thickness is normal. Overall left vent ricular systolic function is normal with, an EF between 55 - 60 %. The diastolic filling pattern is normal for the age of the patient 9.45. The right ventricle is normal in size. The right ventricular systolic function is normal. Normal LA size by volume 22+/-6 ml/m2. The right atrial size is normal. Prominent Chiari network seen in right atrium (normal finding). The aortic valve is trileaflet, and appears structurally normal. No aortic stenosis or regurgitation. The mitral valve is normal. Mild mitral regurgitation is present. The tricuspid valve appears structurally normal. Mild tricuspid regurgitation present. Right vent ricular systolic pressure is normal at < 35 mmHg. There is no pulmonic regurgitation present. The aortic root size is normal. Normal inferior vena cava with normal inspiratory collapse consistent with estimated right atrial pre ssure of 5 mmHg. There is no pericardial effusion. CONCLUSIONS -------- 1. Left ventricular wall thickness is normal. 2. Overall left ventricular systolic function is normal with, an EF between 55 - 60 %. 3. The diastolic filling pattern is normal for the age of the patient 9.45 4. The aortic valve is trileaflet, and appears structurally normal. No aortic stenosis or regurgitati on. 5. Mild mitral regurgitation is present. 6. Mild tricuspid regurgitation present. 7. There is no pericardial effusion. COMPOSITE LAMINATOR: Nina Holland RDCS
== END | disposition home or self-care (01) ==
LOC: RADECHMAIN 12:52
PROVIDERS: ATTEND Internal Medicine Hematology & Oncology
DX: Z01.818 Encounter for other preprocedural examination (principal); I08.1 Rheumatic disorders of both mitral and tricuspid valves
CPT/HCPCS: 93306

== ENCOUNTER → 2021-06-23 | Outpatient (CLI) | payer OTHER ==
--- NOTE | 2021-06-25 21:10 | PE ---
EXAMINATION TYPE: PET CT fusion skull to thigh DATE OF EXAM: 06/23/2021 COMPARISON: Prior PET/CT March 30, 2021 and older studies. HISTORY: Esophageal cancer progress study. Recently diagnosed May 2019. Completed chemotherapy 2 w eeks ago. TECHNIQUE: Following the intravenous administration of 10.21 mCi of F-18 FDG, whole body images are performed from the skull base to the midthigh. Images are reviewed on the computer in the coronal, a xial, and sagittal planes. Reconstructed rotating images are created on independent workstation and reviewed on the computer. A localization and attenuation correction CT is performed in conjunction with the PET scan. Blood glucose level equals 111. SCAN: Subsequent Scan FINDINGS: SKULL BASE AND NECK: Increased uptake bilateral masseter muscles with increased superior deep right s ided uptake presumed product of chewing or eating meal prior to study. More superficial left-sided up take is again seen. Correlate clinically. No new areas of abnormal hypermetabolic uptake. CHEST, MEDIASTINUM, AND HILAR REGION: Persistent moderate concentric wall thickening in the distal es ophagus just above diaphragm for reference axial image 121 current study. Current study is ametabolic . No new areas of abnormal hypermetabolic uptake. ABDOMEN AND PELVIS: Normal excretion is present. No new areas of abnormal hypermetabolic uptake. OSSEOUS STRUCTURES: No new areas of abnormal hypermetabolic uptake. OTHER CT: Patient has very little intra-abdominal fat making evaluation suboptimal similar to prior. Lungs remain clear. Right subclavian Mediport catheter redemonstrated. There is 2 mm nonobstructing c alculus right kidney axial image 174 noted. No new findings are evident. IMPRESSION: Complete positive treatment response as detailed above.
== END | disposition home or self-care (01) ==
LOC: RADPETMAIN 09:50
PROVIDERS: ATTEND Internal Medicine Hematology & Oncology
DX: C15.5 Malignant neoplasm of lower third of esophagus (principal)
CPT/HCPCS: 78815; A9552

== ENCOUNTER 2021-08-21 12:05 | Day surgery (SDC) | payer OTHER ==
[2021-08-18 13:04] VITALS: BMI 17.7
[2021-08-21 12:25] VITALS: RESP 16; TEMP 96.7
[2021-08-21] MEDS ORDERED: LIDOCAINE 1% (10MG/ML) FOR IV START INTRADERMA ONE (12:35)
[2021-08-21] MEDS ORDERED: PROPOFOL 10 MG/ML 20 ML VIAL IV ONE (12:42)
--- NOTE | 2021-08-21 13:27 | P.PCN ---
Date of Procedure: 08/21/21 Procedure(s) Performed: BRIEF HISTORY: Patient is a 56-year-old, pleasant, white male with history of esophageal adenocarcinoma of the distal esophagus status post chemoradiation therapy, and tight distal esophageal stricture for which she underwent EGD with dilation about ago. Patient continues to have progressive dysphagia to solids and liquids weight loss. His and scheduled for an upper endoscopy with a esophageal metal stent placement. PROCEDURE PERFORMED: EsophagogastroduodenoscopyWith esophageal metal stent placement PREOPERATIVE DIAGNOSIS: [History of esophageal adenocarcinoma with tight distal esophageal stricture IV sedation per anesthesia. PROCEDURE: After informed consent was obtained, the patient was brought into the endoscopy unit. IV sedation was administered by Anesthesia under continuous monitoring. Initially the Olympus GIF-140 video endoscope was inserted into the mouth. Esophagus intubated without any difficulty. It was gradually advanced into the distal esophagus. There was large amount of solid food noted in the proximal esophagus which was suctioned out. The scope at this time was advanced into the distal esophageal in the proximal and the stricture was located at 40 cm from the incisors. The scope could not be advanced through the stricture. At this time a guidewire was passed through the scope across the stricture under fluoroscopy guidance. Following this an 18 x 6 cm length metal Wallstent was passed over the guidewire under fluoroscopy and the stent was slowly deployed. Advance the deployment the stent distally to the stomach. At this time the procedure was repeated again and this time under direct endoscopic guidance the guidewire was passed across the stricture into the stomach. The stent was passed over the guidewire and gently advanced into the stomach and under fluoroscopy guidance the stent was deployed in the proximal part of the stent at least 3 cm above the esophageal stricture. Patient tolerated the procedure well. IMPRESSION: Tight distal esophageal stricture located 40 cm from the incisors status post esophageal Wallstent measuring 18mm x 6 cm fully covered metal stent placement as described above Dilated esophagus with significant amount of retained solid food status post removal as described. RECOMMENDATIONS: The findings of this examination were discussed with the patient as well as her family. He will be on a soft diet today. He will follow up in office in 2 weeks .
[2021-08-21 13:56] VITALS: BP 144/88; PULSE 56
[2021-08-21] MEDS ORDERED: IV FLUID CONTINUATION 800 ML IV ONE (14:00)
--- NOTE | 2021-08-21 14:40 | FL ---
Fluoroscopy HISTORY: Esophageal stricture 3 minutes 7 seconds fluoroscopy time supplied to the referring clinician. 5 intraoperative C-arm ailyn ges document the procedure. See dictated report from gastroenterology.
== END 2021-08-21 14:30 | disposition home or self-care (01) ==
LOC: ORWHC2ENDO 12:05
PROVIDERS: ATTEND Internal Medicine Gastroenterology
DX: K22.2 Esophageal obstruction (principal); Z85.01 Personal history of malignant neoplasm of esophagus; Z92.3 Personal history of irradiation; Z92.21 Personal history of antineoplastic chemotherapy; Z88.6 Allergy status to analgesic agent; H91.90 Unspecified hearing loss, unspecified ear; F90.9 Attention-deficit hyperactivity disorder, unspecified type; F41.9 Anxiety disorder, unspecified; F32.A Depression, unspecified; Z79.899 Other long term (current) drug therapy; Z85.028 Personal history of other malignant neoplasm of stomach
CPT/HCPCS: 43266; J2704; C1876

== ENCOUNTER → 2021-09-07 | Outpatient (CLI) | payer OTHER ==
--- NOTE | 2021-09-07 10:50 | XR ---
EXAMINATION TYPE: XR chest 1V DATE OF EXAM: 09/07/2021 COMPARISON: NONE HISTORY: Checking for stent placement TECHNIQUE: Single frontal view of the chest is obtained. FINDINGS: There is no focal air space opacity, pleural effusion, or pneumothorax seen. The cardiac silhouette size is within normal limits. The osseous structures are intact. Metallic stent not seen with certainty. Mediport catheter noted. IMPRESSION: No acute process. See above.
--- NOTE | 2021-09-07 11:05 | XR ---
EXAMINATION TYPE: XR abdomen 1V DATE OF EXAM: 09/07/2021 COMPARISON: NONE HISTORY: Stent placement TECHNIQUE: One view abdominal series FINDINGS: The osseous structures are intact. The bowel gas pattern is nonspecific. There is a large metallic s tent in the left upper quadrant. Location is indeterminate. Could be within the stomach. Severe arthr opathy of the hips. Hypertrophic and degenerative changes spine. Nonspecific sclerosis of the right s acrum. IMPRESSION: 1. There is a metallic stent overlying the left upper quadrant possibly within the stomach. Correlate clinically. CT scan could be obtained for confirmation. 2. Nonspecific sclerosis right sacrum could be correlated with bone scan..
== END | disposition home or self-care (01) ==
LOC: RADXRMAIN 10:02
PROVIDERS: ATTEND Internal Medicine Gastroenterology
DX: K22.2 Esophageal obstruction (principal)
CPT/HCPCS: 71045; 74018

== ENCOUNTER 2022-02-09 18:44 | Inpatient (IN) | payer OTHER ==
[2022-02-09] MEDS ORDERED: MORPHINE SULFATE 4 MG/ML SYRINGE IV STA (23:04)
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
[2022-02-09 23:16] LABS: Appearance,Urine Clear (Clear); Bilirubin,Urine Negative (Negative); Blood,Urine Negative (Negative); Color,Urine Yellow; Glucose,Urine (UA) Negative (Negative); Ketones,Urine Negative (Negative); Leukocyte Esterase,Urine Negative (Negative); Nitrite,Urine Negative (Negative); PH, Urine 8.5 (5.0-8.0); Protein,Urine Trace (Negative); Specific Gravity,Urine 1.022 (1.001-1.035); Urobilinogen,Urine <2.0 mg/dL (<2.0)
[2022-02-09] MEDS ORDERED: HYDROmorphone 1 MG/ML 1 ML SYRINGE IVP STA (23:51)
[2022-02-10] LABS: Basophils % (A) 1 %; Eosinophils # (A) 0.1 k/uL (0-0.7); Eosinophils % (A) 2 %; HCT 25.3 % (39.0-53.0); HGB 7.9 gm/dL (13.0-17.5); Hypochromasia Moderate; Lymphocytes # (A) 0.9 k/uL (1.0-4.8); Lymphocytes % (A) 14 %; MCH 24.7 pg (25.0-35.0); MCHC 31.1 g/dL (31.0-37.0); MCV 79.3 fL (80.0-100.0); Mean Platelet Volume 6.9; Monocytes # (A) 0.4 k/uL (0-1.0); Monocytes % (A) 6 %; Neutrophils # (A) 5.1 k/uL (1.3-7.7); Neutrophils % (A) 75 %; Platelet Count 430 k/uL (150-450); RBC 3.19 m/uL (4.30-5.90); RDW 14.9 % (11.5-15.5); WBC 6.9 k/uL (3.8-10.6)
[2022-02-10 00:30] LABS: ALT 32 U/L (4-49); AST 35 U/L (17-59); African American GFR (CKD) >90 (>60 ml/min/1.73 sqM); Albumin 3.4 g/dL (3.5-5.0); Alkaline Phosphatase 323 U/L (38-126); Amylase 42 U/L (30-110); Anion Gap 1 mmol/L; Blood Urea Nitrogen 23 mg/dL (9-20); Calcium 8.7 mg/dL (8.4-10.2); Carbon Dioxide 34 mmol/L (22-30); Chloride 100 mmol/L (98-107); Glucose 115 mg/dL (74-99); Lipase 78 U/L (23-300); Non-African American GFR(CKD) >90 (>60 ml/min/1.73 sqM); Sodium 135 mmol/L (137-145); Total Bilirubin 0.5 mg/dL (0.2-1.3); Total Protein 6.6 g/dL (6.3-8.2)
[2022-02-10] MEDS ORDERED: HYDROmorphone 1 MG/ML 1 ML SYRINGE IVP STA ×2 (02:02→05:27)
--- NOTE | 2022-02-10 03:20 | CT ---
EXAMINATION TYPE: CT abdomen pelvis w con DATE OF EXAM: 02/10/2022 COMPARISON: PET/CT scan 06/23/2021 HISTORY: ACUTE ABD PAIN, NON LOCALIZED CT DLP: 758.9 mGycm Automated exposure control for dose reduction was used. CONTRAST: Performed with IV Contrast, patient injected with 100 mL of Isovue 300. Images obtained from the diaphragm to the floor the pelvis with IV contrast. Lung bases show some infiltrate at the inferior right pulmonary hilum. There is hiatal hernia. There is some thickening of the wall of the esophagus at the gastroesophageal junction. Could relate to omaira or. There is apparent enlarged 2 cm lymph node at the posterior inferior aspect right pulmonary hilum adjacent to the esophagus. There are numerous variable sized hypodense foci in the liver that measure up to 3 [address]pleen is [address]. No pancreatic mass. Stomach is intact. The bile ducts are not dilated. Gallbladder is intact. There is no adrenal mass. Kidneys show satisfactory contrast opacification. No hydronephrosis. Ureter s are not dilated. No retroperitoneal adenopathy. The bladder distends smoothly. No inguinal hernia. No free fluid in the pelvis. No pelvic mass. The lumbar vertebrae have normal alignment. No compression fracture. Posterior elements are intact. T he bony pelvis is intact. The hip joints are intact. There is some mild acetabular spurring. IMPRESSION: Numerous hypodense liver lesions suggestive of hepatic metastatic disease and are new compared to the old exam. There are enlarged paraesophageal lymph nodes at the distal esophagus as well as some wall thickening that could relate to tumor. This appears new compared to old exam. There is paraspinal ri ght lower lobe infiltrate which is new compared to old exam.
[2022-02-10] MEDS ORDERED: ACETAMINOPHEN TAB 325 MG TAB PO PRN (05:29)
[2022-02-10] MEDS ORDERED: NALOXONE 0.4 MG/ML 1 ML VIAL IV PRN (05:29)
[2022-02-10] MEDS ORDERED: HYDROmorphone 0.5 MG/0.5 ML SYRINGE IVP PRN (05:29)
[2022-02-10] MEDS: SODIUM CHLORIDE 0.9% 1,000 ML IV SCH ×3 (05:46→22:02)
[2022-02-10] MEDS ORDERED: ENOXAPARIN 30 MG/0.3 ML SYRINGE SQ SCH (09:00)
[2022-02-10] MEDS: HYDROmorphone 1 MG/ML 1 ML SYRINGE IVP PRN ×3 (10:43→22:00)
[2022-02-10] MEDS: SENNOSIDES-DOCUSATE SODIUM 1 EACH TAB PO SCH (20:03)
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
[2022-02-10 23:17] LABS: % Iron Saturation 5.8 (15.00-50.00); Ferritin 18.6 ng/mL (22.0-322.0)
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
[2022-02-11] MEDS: AZITHROMYCIN 500 MG TAB PO SCH ×2 (00:48→08:25)
[2022-02-11] MEDS: HYDROmorphone 1 MG/ML 1 ML SYRINGE IVP PRN ×5 (03:49→21:59)
[2022-02-11] MEDS: SODIUM CHLORIDE 0.9% 1,000 ML IV SCH ×3 (06:33→20:29)
--- NOTE | 2022-02-11 07:34 | XR ---
EXAMINATION TYPE: XR chest 1V DATE OF EXAM: 02/11/2022 HISTORY: Shortness of breath. COMPARISON: 09/07/2021 TECHNIQUE: Single view of the chest is submitted. FINDINGS: Demonstrated are scattered senescent parenchymal change. There is left apical infiltrate as well as linear density at the left lung base which may reflect add itional infiltrate or atelectasis. The right lung remains clear. The heart is stable. Hilar and mediastinal structures are within normal limits. Degenerative changes are seen of the dorsal spine. IMPRESSION: 1. There is left apical infiltrate as well as linear density at the left lung base which may reflect additional infiltrate or atelectasis. The right lung remains clear.
[2022-02-11] MEDS: ENOXAPARIN 40 MG/0.4 ML SYRINGE SQ SCH (08:25)
[2022-02-11] MEDS: SENNOSIDES-DOCUSATE SODIUM 1 EACH TAB PO SCH ×2 (08:25→20:28)
[2022-02-11 11:09] LABS: African American GFR (CKD) 120.5 (60.0-200.0); Anion Gap 8.1 mmol/L (10.00-18.00); BUN/Creat Ratio 15.45 Ratio (12.00-20.00); Blood Urea Nitrogen 11.6 mg/dL (9.0-27.0); Carbon Dioxide 29.1 mmol/L (20.0-27.5); Non-African American GFR(CKD) 103.9 (60.0-200.0); Potassium 3.9 mmol/L (3.5-5.5)
[2022-02-11 11:14] LABS: Basophils # (A) 0.04 X 10*3/uL (0.00-0.10); Basophils % (A) 0.5 %; Eosinophils # (A) 0.09 X 10*3/uL (0.04-0.35); Eosinophils % (A) 1.1 %; HCT 27.5 % (39.6-50.0); HGB 8.3 g/dL (13.0-17.0); Immature Grans, Automated 0.4 %; Lymphocytes # (A) 0.92 X 10*3/uL (0.90-5.00); Lymphocytes % (A) 11.7 %; MCHC 30.2 g/dL (32.0-37.0); MCV 79.5 fL (80.0-97.0); Monocytes % (A) 8.9 %; NRBC Per 100 WBC 0 /100 WBCS (0.0-0.0); Neutrophils # (A) 6.06 X 10*3/uL (1.80-7.70); Neutrophils % (A) 77.4 %; Platelet Count 437 X 10*3/uL (140-440); RBC 3.46 X 10*6/uL (4.40-5.60); WBC 7.84 X 10*3/uL (4.50-10.00)
--- NOTE | 2022-02-11 13:35 | P.PN ---
Subjective Progress Note Date: 02/11/22 Principal diagnosis: Metastatic esophageal adenocarcinoma -No acute events overnight -Notes having bowel movement since starting stool softeners has had improved abdominal pain following this -He denies any dyspnea currently and feels this is improved from initial presentation Objective - Vital Signs Vital signs: Vital Signs Temp 97.5 F L 02/11/22 11:15 Pulse 82 02/11/22 11:15 Resp 18 02/11/22 11:15 BP 138/80 02/11/22 11:15 Pulse Ox 100 02/11/22 11:15 FiO2 Intake & Output 02/10/22 02/11/22 02/11/22 18:59 06:59 18:59 Output Total 550 1300 Balance -550 -1300 Output: Urine 550 1300 Other: Voiding Method Urinal Urinal # Voids 3 - Constitutional General appearance: Present: average body habitus, cooperative, no acute distress - EENT Eyes: Present: EOMI - Respiratory Respiratory: right: other (Inspiratory crackles appreciated at the right lung base) - Cardiovascular Rhythm: regular - Gastrointestinal General gastrointestinal: Present: hepatomegaly, soft. Absent: distended, tenderness - Integumentary Integumentary: Absent: rash - Neurologic Neurologic: Present: CNII-XII intact - Labs CBC & Chem 7: 02/11/22 06:07 02/11/22 06:07 Labs: Abnormal Lab Results - Last 24 Hours (Table) 02/10/22 02/11/22 02/11/22 Range/Units 16:17 06:07 06:07 RBC 3.46 L (4.40-5.60) X 10*6/uL Hgb 8.3 L (13.0-17.0) g/dL Hct 27.5 L (39.6-50.0) % MCV 79.5 L (80.0-97.0) fL MCH 24.0 L (27.0-32.0) pg MCHC 30.2 L (32.0-37.0) g/dL RDW 15.0 H (11.5-14.5) % MPV 9.0 L (9.5-12.2) fL Sodium 134 L (135-145) mmol/L Carbon Dioxide 29.1 H (20.0-27.5) mmol/L Anion Gap 8.10 L (10.00-18.00) mmol/L Glucose 112 H (70-110) mg/dL Iron 21 L (65-175) ug/dL % Saturation 5.80 L (15.00-50.00) Ferritin 18.6 L (22.0-322.0) ng/mL Microbiology - Last 24 Hours (Table) 02/10/22 05:45 Blood Culture - Preliminary Blood No Growth after 24 hours 02/10/22 05:30 Blood Culture - Preliminary Blood No Growth after 24 hours Assessment and Plan Assessment: Mr. Epperson is a 56 year old gentleman with metastatic esophageal cancer pre senting with dyspnea found to have right lower lung base infiltrate on CT imaging consistent with pneumonia. (1) Microcytic anemia Current Visit: Yes Status: Acute Code(s): D50.9 - IRON DEFICIENCY ANEMIA, UNSPECIFIED SNOMED Code(s): 995226226 (2) Stage IV adenocarcinoma of esophagus Current Visit: Yes Status: Chronic Code(s): C15.9 - MALIGNANT NEOPLASM OF ESOPHAGUS, UNSPECIFIED SNOMED Code(s): 365796335 (3) Pneumonia Current Visit: Yes Status: Acute Code(s): J18.9 - PNEUMONIA, UNSPECIFIED ORGANISM SNOMED Code(s): 559746453 Plan: #Pneumonia -Likely CAP -CT a/p with right lower lobe infiltrate -Currently on ceftriaxone breathing comfortably on room air #Microcytic anemia -Hgb 7.9 with MCV 79.3 -He does not have GI blood loss currently -Anemia workup on admission consistent for iron deficiency -We will await for blood cultures been negative for 48 hours prior to initiating any IV iron. He should be discharged on oral iron -No need for transfusion at this time -Transfuse for Hgb < 7, platelets < or = 10k or bleeding #Metastatic esophageal cancer -Previously on FOLFOX and herceptin, last in 06/2021 -Currently transitioning care to [facility] -No acute oncologic interventions -Notes he had been taking [place] 10 every 6 hours as needed for abdominal pain, but had run out of pain medication at home prior to admission -Oxycodone extended release 15 mg twice daily added today. One week supply should be given to them on discharge. He will obtain further scrips from his the oncologist [facility] who he is established to see on 02/14/2022 -doc/senna BID added to help with constipation
[2022-02-11] MEDS: oxyCODONE ER 15 MG TAB.ER.12H PO SCH (20:28)
[2022-02-12] MEDS: HYDROmorphone 1 MG/ML 1 ML SYRINGE IVP PRN ×3 (01:56→11:19)
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
[2022-02-12] MEDS: SODIUM CHLORIDE 0.9% 1,000 ML IV SCH (06:13)
[2022-02-12] MEDS: oxyCODONE ER 15 MG TAB.ER.12H PO SCH (08:51)
[2022-02-12] MEDS: AZITHROMYCIN 500 MG TAB PO SCH (08:51)
[2022-02-12] MEDS: SENNOSIDES-DOCUSATE SODIUM 1 EACH TAB PO SCH (08:52)
[2022-02-12] MEDS: ENOXAPARIN 40 MG/0.4 ML SYRINGE SQ SCH (08:52)
[2022-02-12] MEDS ORDERED: SODIUM FERRIC GLUCONAT-SUCROSE 125 MG in SODIUM CHLORIDE 0.9% 100 ML IVPB SCH (09:00)
[2022-02-12 10:21] LABS: Basophils # (A) 0.05 X 10*3/uL (0.00-0.10); Basophils % (A) 0.7 %; Eosinophils # (A) 0.08 X 10*3/uL (0.04-0.35); Eosinophils % (A) 1.2 %; HCT 26.7 % (39.6-50.0); HGB 8.2 g/dL (13.0-17.0); Immature Grans, Automated 0.3 %; Lymphocytes # (A) 0.84 X 10*3/uL (0.90-5.00); Lymphocytes % (A) 12.5 %; MCH 24.1 pg (27.0-32.0); MCHC 30.7 g/dL (32.0-37.0); MCV 78.5 fL (80.0-97.0); Mean Platelet Volume 8.9 fL (9.5-12.2); Monocytes # (A) 0.68 X 10*3/uL (0.20-1.00); Monocytes % (A) 10.1 %; NRBC Per 100 WBC 0 /100 WBCS (0.0-0.0); Neutrophils # (A) 5.05 X 10*3/uL (1.80-7.70); Neutrophils % (A) 75.2 %; Platelet Count 423 X 10*3/uL (140-440); RDW 14.8 % (11.5-14.5); WBC 6.72 X 10*3/uL (4.50-10.00)
[2022-02-12 11:44] VITALS: BP 116/73; PULSE 95; RESP 20; TEMP 98.6
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
== END 2022-02-12 15:41 | disposition home or self-care (01) | DRG 947 ==
LOC: EC 18:44 → 5NMEDONC 02-10 05:29
PROVIDERS: ADMIT Hospitalist; ATTEND Hospitalist
DX: G89.3 Neoplasm related pain (acute) (chronic) (principal); J18.9 Pneumonia, unspecified organism; C15.5 Malignant neoplasm of lower third of esophagus; C78.7 Secondary malignant neoplasm of liver and intrahepatic bile duct; E87.1 Hypo-osmolality and hyponatremia; D50.9 Iron deficiency anemia, unspecified; E86.1 Hypovolemia; F32.A Depression, unspecified; F41.9 Anxiety disorder, unspecified; F90.9 Attention-deficit hyperactivity disorder, unspecified type; H91.90 Unspecified hearing loss, unspecified ear; K21.9 Gastro-esophageal reflux disease without esophagitis; R59.0 Localized enlarged lymph nodes; Z80.0 Family history of malignant neoplasm of digestive organs; Z80.42 Family history of malignant neoplasm of prostate; Z85.028 Personal history of other malignant neoplasm of stomach; Z87.738 Personal history of other specified (corrected) congenital malformations of digestive system; Z87.891 Personal history of nicotine dependence; Z92.21 Personal history of antineoplastic chemotherapy; Z92.3 Personal history of irradiation; T39.96XA Underdosing of unspecified nonopioid analgesic, antipyretic and antirheumatic, initial encounter; Z91.120 Patient's intentional underdosing of medication regimen due to financial hardship; Z28.310 Unvaccinated for COVID-19; Z87.81 Personal history of (healed) traumatic fracture; Z79.899 Other long term (current) drug therapy
CPT/HCPCS: 36415; 71045; 74177; 80048; 80053; 81003; 82150; 82607; 82728; 82746; 83540; 83550; 83605; 83690; 84145; 84484; 85025; 87040; 93005; 96374; 96375; 96376; 99285

== ENCOUNTER 2022-03-15 15:19 | Inpatient (IN) | payer OTHER ==
[2022-03-15] MEDS ORDERED: SODIUM CHLORIDE 0.9% 1,000 ML IV STA (17:34)
[2022-03-15] MEDS ORDERED: ONDANSETRON 4 MG/2 ML VIAL IVP STA (17:34)
[2022-03-15] MEDS ORDERED: MORPHINE SULFATE ER 15 MG TABLET PO STA (17:35)
--- NOTE | 2022-03-15 18:36 | XR ---
EXAMINATION TYPE: XR chest 2V DATE OF EXAM: 03/15/2022 COMPARISON: 02/11/2022 INDICATION: Weakness, short of breath TECHNIQUE: Frontal and lateral views of the chest are obtained. FINDINGS: The heart size is normal. The pulmonary vasculature is normal. There is mild diffuse increased lung markings. This most focal in the right lower lobe at the anterio r fifth rib end level. Correlate for atelectasis or pneumonia. Follow-up is recommended. Port is pre sent on the right with tip in the superior vena cava region. IMPRESSION: 1. Small focal area of increased infiltrate right lower lung field with mild diffuse increased lung m arkings. Correlate for atelectasis and pneumonia. Consider atypical pneumonia.
[2022-03-15] MEDS ORDERED: AZITHROMYCIN 500 MG in SODIUM CHLORIDE 0.9% 250 ML IVPB STA (18:39)
[2022-03-15] MEDS ORDERED: cefTRIAXone IN SWFI 1,000 MG/10 ML SYRINGE IVP STA (18:39)
[2022-03-15 18:41] LABS: INR 1.1 (<1.2); Partial Thromboplastin Time 23.7 sec (22.0-30.0); Prothrombin Time 11.2 sec (9.0-12.0)
[2022-03-15 18:43] LABS: ALT 18 U/L (4-49); AST 34 U/L (17-59); African American GFR (CKD) >90 (>60 ml/min/1.73 sqM); Albumin 2.8 g/dL (3.5-5.0); Alkaline Phosphatase 556 U/L (38-126); Anion Gap 5 mmol/L; Blood Urea Nitrogen 28 mg/dL (9-20); Calcium 8.5 mg/dL (8.4-10.2); Carbon Dioxide 30 mmol/L (22-30); Chloride 96 mmol/L (98-107); Glucose 112 mg/dL (74-99); Magnesium 1.7 mg/dL (1.6-2.3); Non-African American GFR(CKD) >90 (>60 ml/min/1.73 sqM); Phosphorus 3.6 mg/dL (2.5-4.5); Sodium 131 mmol/L (137-145); Total Bilirubin 0.8 mg/dL (0.2-1.3); Total Protein 6.2 g/dL (6.3-8.2)
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
[2022-03-15 18:53] LABS: Basophils % (A) 0 %; Eosinophils # (A) 0.1 k/uL (0-0.7); Eosinophils % (A) 1 %; HCT 28.9 % (39.0-53.0); HGB 9.2 gm/dL (13.0-17.5); Hypochromasia Moderate; Lymphocytes # (A) 0.9 k/uL (1.0-4.8); Lymphocytes % (A) 7 %; MCH 23.5 pg (25.0-35.0); MCHC 31.7 g/dL (31.0-37.0); MCV 74.2 fL (80.0-100.0); Mean Platelet Volume 7.6; Microcytosis Slight; Monocytes # (A) 0.8 k/uL (0-1.0); Monocytes % (A) 6 %; Neutrophils # (A) 11.2 k/uL (1.3-7.7); Neutrophils % (A) 85 %; Platelet Count 331 k/uL (150-450); RDW 14.5 % (11.5-15.5); WBC 13.1 k/uL (3.8-10.6)
[2022-03-15] MEDS ORDERED: ONDANSETRON 4 MG/2 ML VIAL IVP PRN (20:12)
[2022-03-15] MEDS ORDERED: NALOXONE 0.4 MG/ML 1 ML VIAL IV PRN (20:12)
[2022-03-15] MEDS ORDERED: MORPHINE SULFATE 4 MG/ML SYRINGE IV PRN (20:12)
[2022-03-15] MEDS: SODIUM CHLORIDE 0.9% 1,000 ML IV SCH (21:29)
[2022-03-16] MEDS ORDERED: LIDOCAINE 2% INJ 20 MG/ML (2 ML VIAL) ONE (09:08)
[2022-03-16] MEDS ORDERED: PROPOFOL 10 MG/ML 20 ML VIAL IV ONE (09:08)
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
[2022-03-16] MEDS ORDERED: IV FLUID CONTINUATION 1,000 ML IV ONE (09:15)
[2022-03-16] MEDS ORDERED: ceFAZolin 10 GM VIAL IVPB ONE (09:15)
[2022-03-16] MEDS ORDERED: LIDOCAINE 2% (PF) 20 MG/ML 5 ML VIAL SQ ONE (09:21)
--- NOTE | 2022-03-16 09:35 | P.PCN ---
Date of Procedure: 03/16/22 Procedure(s) Performed: PREOPERATIVE DIAGNOSIS: Malnutrition, esophageal cancer, dysphagia POSTOPERATIVE DIAGNOSIS: Same PROCEDURE: EGD with PEG tube placement SURGEON: Hailee EBL: Minimal ANESTHESIA: Sedation COMPLICATIONS: None OPERATIVE PROCEDURE: The patient was placed in the supine position on the endos copy table. The patient was sedated per anesthesia that time. The Olympus gastroscope was inserted into the oropharynx and passed under direct visualization to the region of the duodenum. No obstruction was seen. The pylorus was widely patent. The stomach was carefully inspected. The patient had a large mass involving the GE junction extending into the upper 20% of the stomach and proximally in the esophagus as well. There was a narrowing in the esophagus however we were able to advance without significant difficulty. The stomach was fully insufflated with air. The abdominal wall was inspected. The light was seen shining through the abdominal wall in the left upper quadrant. This site was chosen for PEG tube placement. The area was prepped in the usual sterile fashion. This area was then localized with lidocaine. No air was evident when aspirating while advancing the localizing needle into the stomach until the stomach was reached. A small vertical incision was made using the scalpel. The Seldinger needle was advanced into the lumen of the stomach the wire was advanced. The wire was grasped with an endoscopic snare. The wire was pulled through the oropharynx. The catheter was then threaded over the guidewire and the guidewire and catheter were pulled anteriorly until the hub of the PEG tube catheter was seated against the anterior wall the stomach. The circular bolster was applied and tightened down. The endoscope was then readvanced into the stomach. There was no evidence of any bleeding and there was appropriate tightness on the bolster. The catheter was cut appropriately. The dual port feeding adapter was applied. DISPOSITION: Stable to recovery room
[2022-03-16] MEDS: SODIUM CHLORIDE 0.9% 1,000 ML IV SCH (10:01)
[2022-03-16] MEDS ORDERED: HYDROcodone/APAP 7.5-325MG 1 EACH TAB PO PRN (12:13)
[2022-03-16] MEDS ORDERED: PROCHLORPERAZINE 10 MG TAB PO PRN (12:13)
[2022-03-16] MEDS ORDERED: cefTRIAXone 1,000 MG VIAL (IM USE) IM SCH (12:15)
[2022-03-16] MEDS: PANTOPRAZOLE 40 MG/10 ML VIAL IVP SCH (12:43)
[2022-03-16] MEDS: HEPARIN SODIUM,PORCINE/PF 5,000 UNIT/0.5 ML SYRINGE SQ SCH ×2 (12:43→20:07)
[2022-03-16] MEDS: HYDROmorphone 1 MG/ML 1 ML SYRINGE IVP PRN ×3 (12:44→22:42)
--- NOTE | 2022-03-16 15:29 | HP ---
HISTORY AND PHYSICAL CHIEF COMPLAINTS: Weakness and dysphagia. HISTORY OF PRESENT ILLNESS: This 57-year-old gentleman with a past medical history of esophageal cancer, GERD, being followed by Dr. complaints associated with dysphagia and weakness. The patient was evaluated by surgery and a PEG tube inserted by Dr. Stephen. Patient closely monitored at this time. A chest x-ray was also done in the ER which I reviewed, showed possibly a right lower lobe pneumonia also. There is no history of any fever, rigors, or chills at this time. PAST MEDICAL HISTORY: Esophageal cancer, rest of history and rest of the chart is also reviewed. HOME MEDICATIONS: Reviewed include MS Contin, dose and rest of medications reviewed. ALLERGIES: Aspirin. FAMILY HISTORY: History of prostate cancer. SOCIAL HISTORY: History of smoking. REVIEW OF SYSTEMS: A 14-point review is negative as mentioned earlier. PHYSICAL EXAMINATION: VITAL SIGNS: Pulse is 83, blood pressure 140/80, respirations 16. HEENT: Conjunctivae normal. NECK: No jugular venous distention. CARDIOVASCULAR: S1 and S2 muffled. RESPIRATORY: Diminished at the bases, scattered rhonchi and crackles. ABDOMEN: Soft, nontender. LEGS: No edema, no swelling. NERVOUS SYSTEM: No focal deficits.. LABS: WBC 13.6, other labs are noted. X-ray noted. ASSESSMENT: 1. Severe malnutrition with dysphagia, status post PEG tube placement. 2. Esophageal cancer. 3. Right lower pneumonia. 4. History of GERD. 5. Multiple medical issues. RECOMMENDATIONS: This 57-year-old gentleman presented with multiple complex medical issues, we will monitor the patient closely. PEG tube inserted. We will get dietary consultation to initiate PEG tube feeds closely for surgery. Pain management. Empiric antibiotics for the pneumonia otherwise prognosis guarded because of multiple complex medical problems. See orders for details. MMODL / IJN: [id number] / MTDD
[2022-03-16] MEDS: MORPHINE SULFATE ER 15 MG TABLET PO SCH ×2 (17:47→20:46)
[2022-03-16 18:23] LABS: Appearance,Urine Clear (Clear); Bilirubin,Urine Negative (Negative); Blood,Urine Negative (Negative); Color,Urine Yellow; Glucose,Urine (UA) Negative (Negative); Ketones,Urine Negative (Negative); Leukocyte Esterase,Urine Negative (Negative); Nitrite,Urine Negative (Negative); PH, Urine 5.5 (5.0-8.0); Protein,Urine Negative (Negative); Specific Gravity,Urine 1.014 (1.001-1.035); Urobilinogen,Urine <2.0 mg/dL (<2.0)
[2022-03-16] MEDS: SENNOSIDES-DOCUSATE SODIUM 1 EACH TAB PO SCH (20:46)
[2022-03-17] MEDS: SODIUM CHLORIDE 0.9% 1,000 ML IV SCH ×2 (01:41→16:49)
[2022-03-17] MEDS: HYDROmorphone 1 MG/ML 1 ML SYRINGE IVP PRN ×7 (01:46→23:29)
[2022-03-17] MEDS: PANTOPRAZOLE 40 MG/10 ML VIAL IVP SCH (09:23)
[2022-03-17] MEDS: AZITHROMYCIN 500 MG TAB PO SCH (09:23)
[2022-03-17] MEDS: HEPARIN SODIUM,PORCINE/PF 5,000 UNIT/0.5 ML SYRINGE SQ SCH ×2 (09:24→20:01)
[2022-03-17] MEDS: SENNOSIDES-DOCUSATE SODIUM 1 EACH TAB PO SCH ×2 (09:29→20:01)
[2022-03-17] MEDS: MORPHINE SULFATE ER 15 MG TABLET PO SCH ×3 (09:29→20:02)
--- NOTE | 2022-03-17 11:14 | P.PN ---
Subjective Progress Note Date: 03/17/22 Principal diagnosis: Malnutrition Patient doing well today. Says his pain is minimal. No nausea or vomiting. Output from the PEG tube 500 mL since yesterday. Objective - Vital Signs Vital signs: Vital Signs Temp 98.1 F 03/17/22 07:00 Pulse 78 03/17/22 07:00 Resp 17 03/17/22 07:00 BP 124/78 03/17/22 07:00 Pulse Ox 99 03/17/22 07:00 FiO2 Intake & Output 03/16/22 03/17/22 03/17/22 18:59 06:59 18:59 Intake Total 200 0 Output Total 350 500 Balance -150 -500 Weight 65.771 kg 65.771 kg Intake: IV 200 Oral 0 Output: Gastric Drainage 500 Urine 350 Other: Voiding Method Toilet # Voids 1 - Exam Abdomen: Soft, nondistended, PEG tube in place - Labs CBC & Chem 7: 03/15/22 18:10 03/15/22 18:10 Labs: Microbiology - Last 24 Hours (Table) 03/15/22 19:20 Blood Culture - Preliminary Blood No Growth after 24 hours 03/15/22 19:30 Blood Culture - Preliminary Blood No Growth after 24 hours Assessment and Plan (1) Stage IV adenocarcinoma of esophagus Narrative/Plan: Patient doing fairly well after PEG tube placement. Gastric output noted. Seems to be less this morning. Begin low-volume tube feeds at 10 mL per hour. Current Visit: No Status: Chronic Code(s): C15.9 - MALIGNANT NEOPLASM OF ESOPHAGUS, UNSPECIFIED SNOMED Code(s): 814541783
[2022-03-17 11:57] LABS: HCT 25.7 % (39.6-50.0); HGB 7.9 g/dL (13.0-17.0); MCH 22.4 pg (27.0-32.0); MCHC 30.7 g/dL (32.0-37.0); Mean Platelet Volume 9.1 fL (9.5-12.2); NRBC Per 100 WBC 0 /100 WBCS (0.0-0.0); Platelet Count 397 X 10*3/uL (140-440); RBC 3.52 X 10*6/uL (4.40-5.60); RDW 15.8 % (11.5-14.5); WBC 13.87 X 10*3/uL (4.50-10.00)
[2022-03-17 12:11] LABS: African American GFR (CKD) 131.2 (60.0-200.0); Anion Gap 12.6 mmol/L (10.00-18.00); BUN/Creat Ratio 30.17 Ratio (12.00-20.00); Blood Urea Nitrogen 18.1 mg/dL (9.0-27.0); Calcium 8.5 mg/dL (8.7-10.3); Carbon Dioxide 24.4 mmol/L (20.0-27.5); Non-African American GFR(CKD) 113.2 (60.0-200.0); Potassium 3.6 mmol/L (3.5-5.5)
[2022-03-17 12:44] LABS: Basophils # (A) 0.04 X 10*3/uL (0.00-0.10); Basophils % (A) 0.3 %; Eosinophils # (A) 0.07 X 10*3/uL (0.04-0.35); Eosinophils % (A) 0.5 %; Immature Grans, Automated 0.9 %; Lymphocytes # (A) 0.78 X 10*3/uL (0.90-5.00); Lymphocytes % (A) 5.6 %; Monocytes % (A) 5.8 %; Neutrophils # (A) 12.05 X 10*3/uL (1.80-7.70); Neutrophils % (A) 86.9 %
--- NOTE | 2022-03-17 13:53 | P.PN ---
Subjective This is a pleasant 57 years old male with history of esophageal cancer and dysphagia since 01/2022, he is following up with Dr. Falk (! hoang) at [facility], patient states that he has follow-up appointment with him in 2 weeks and that his sister has the exact date for his follow-up. He presents because of dyspnea and productive cough and malaise over one week, on chest x- ray he has some evidence of pneumonia and he was started on ceftriaxone and Zithromax but also aspiration is concerned however patient with no fever, he has mild leukocytosis at 13,000. Respiratory Viruses are negative. However reportcalcitonin is mildly elevated 0.30. Patient is not on home oxygen. Also he is currently on normal saline 75 mL/h PEG tube was placed by surgery team and start to feed him today at 10 mL/h Objective - Vital Signs Vital signs: Vital Signs Temp 98.1 F 03/17/22 07:00 Pulse 78 03/17/22 07:00 Resp 17 03/17/22 07:00 BP 124/78 03/17/22 07:00 Pulse Ox 99 03/17/22 07:00 FiO2 Intake & Output 03/16/22 03/17/22 03/17/22 18:59 06:59 18:59 Intake Total 200 0 Output Total 350 500 Balance -150 -500 Weight 65.771 kg 65.771 kg Intake: IV 200 Oral 0 Output: Gastric Drainage 500 Urine 350 Other: Voiding Method Toilet # Voids 1 - Exam GENERAL: The patient is alert and oriented x3, not in any acute distress. Well developed, well nourished. HEENT: Pupils are round and equally reacting to light. EOMI. No scleral icterus. No conjunctival pallor. Normocephalic, atraumatic. No pharyngeal erythema. No thyromegaly. CARDIOVASCULAR: S1 and S2 present. No murmurs, rubs, or gallops. PULMONARY: Chest is clear to auscultation, no wheezing or crackles. -ABDOMEN: Soft, nontender, nondistended, normoactive bowel sounds. No palpable organomegaly. PEG tube in a Place MUSCULOSKELETAL: No joint swelling or deformity. EXTREMITIES: No cyanosis, clubbing, or pedal edema. NEUROLOGICAL: Gross neurological examination did not reveal any focal deficits. SKIN: No rashes. no petechiae. - Labs CBC & Chem 7: 03/17/22 08:01 03/17/22 08:01 Labs: Abnormal Lab Results - Last 24 Hours (Table) 03/17/22 03/17/22 03/17/22 Range/Units 08:01 08:01 08:01 WBC 13.87 H (4.50-10.00) X 10*3/uL RBC 3.52 L (4.40-5.60) X 10*6/uL Hgb 7.9 L (13.0-17.0) g/dL Hct 25.7 L (39.6-50.0) % MCV 73.0 L (80.0-97.0) fL MCH 22.4 L (27.0-32.0) pg MCHC 30.7 L (32.0-37.0) g/dL RDW 15.8 H (11.5-14.5) % MPV 9.1 L (9.5-12.2) fL Immature Gran # 0.13 H (0.00-0.04) X 10*3/uL Neutrophils # 12.05 H (1.80-7.70) X 10*3/uL Lymphocytes # 0.78 L (0.90-5.00) X 10*3/uL Sodium 134 L (135-145) mmol/L BUN/Creatinine Ratio 30.17 H (12.00-20.00) Ratio Calcium 8.5 L (8.7-10.3) mg/dL Procalcitonin 0.30 H (0.02-0.09) ng/mL Microbiology - Last 24 Hours (Table) 03/15/22 19:20 Blood Culture - Preliminary Blood No Growth after 24 hours 03/15/22 19:30 Blood Culture - Preliminary Blood No Growth after 24 hours Assessment and Plan Assessment: Chronic dysphagia secondary to esophageal cancer status post PEG tube placement Possible right lower lobe pneumonia, community-acquired. Rule out aspiration pneumonia Dehydration Chronic anemia Plan: Continue with ceftriaxone and Zithromax Continue gentle hydration Pulmonary team consult start PEG tube feedings and advance slowly as tolerated Surgery team consult Labs and medication were reviewed.. Continue same treatment. Continue with symptomatic treatment. Resume home medication. Monitor labs and vitals. DVT and GI prophylaxis. Further recommendations as per clinical course of the patient DVT prophylaxis: Subcutaneous heparin GI Prophylaxis: Ppi Prognosis is guarded
[2022-03-18] MEDS: HYDROmorphone 1 MG/ML 1 ML SYRINGE IVP PRN ×4 (03:39→15:35)
[2022-03-18] MEDS: SODIUM CHLORIDE 0.9% 1,000 ML IV SCH (03:40)
[2022-03-18] MEDS: PANTOPRAZOLE 40 MG/10 ML VIAL IVP SCH (07:36)
[2022-03-18] MEDS: AZITHROMYCIN 500 MG TAB PO SCH (07:36)
[2022-03-18] MEDS: MORPHINE SULFATE ER 15 MG TABLET PO SCH (07:37)
[2022-03-18] MEDS: HEPARIN SODIUM,PORCINE/PF 5,000 UNIT/0.5 ML SYRINGE SQ SCH ×2 (07:37→20:30)
[2022-03-18] MEDS: SENNOSIDES-DOCUSATE SODIUM 1 EACH TAB PO SCH ×2 (07:37→20:31)
--- NOTE | 2022-03-18 10:52 | P.PN ---
Subjective Progress Note Date: 03/18/22 Principal diagnosis: Malnutrition Patient doing well today. Tolerating tube feeds at 40 mL/h. Denies any nausea or vomiting. Also tolerating liquid diet. Pain is mild. Objective - Vital Signs Vital signs: Vital Signs Temp 97.3 F L 03/18/22 07:00 Pulse 92 03/18/22 07:00 Resp 19 03/18/22 07:00 BP 138/91 03/18/22 07:00 Pulse Ox 98 03/18/22 07:00 FiO2 Intake & Output 03/17/22 03/18/22 03/18/22 18:59 06:59 18:59 Intake Total 40 238 Output Total 125 200 Balance 40 113 -200 Weight 65.771 kg 64 kg Intake: Tube Feeding 40 238 Output: Urine 125 200 Other: Voiding Method Toilet - Exam Abdomen: Soft, nondistended, PEG tube in place - Labs CBC & Chem 7: 03/17/22 08:01 03/17/22 08:01 Labs: Abnormal Lab Results - Last 24 Hours (Table) 03/17/22 03/17/22 03/17/22 Range/Units 08:01 08:01 08:01 WBC 13.87 H (4.50-10.00) X 10*3/uL RBC 3.52 L (4.40-5.60) X 10*6/uL Hgb 7.9 L (13.0-17.0) g/dL Hct 25.7 L (39.6-50.0) % MCV 73.0 L (80.0-97.0) fL MCH 22.4 L (27.0-32.0) pg MCHC 30.7 L (32.0-37.0) g/dL RDW 15.8 H (11.5-14.5) % MPV 9.1 L (9.5-12.2) fL Immature Gran # 0.13 H (0.00-0.04) X 10*3/uL Neutrophils # 12.05 H (1.80-7.70) X 10*3/uL Lymphocytes # 0.78 L (0.90-5.00) X 10*3/uL Sodium 134 L (135-145) mmol/L BUN/Creatinine Ratio 30.17 H (12.00-20.00) Ratio Calcium 8.5 L (8.7-10.3) mg/dL Procalcitonin 0.30 H (0.02-0.09) ng/mL Microbiology - Last 24 Hours (Table) 03/15/22 19:30 Blood Culture - Preliminary Blood No Growth after 48 hours 03/15/22 19:20 Blood Culture - Preliminary Blood No Growth after 48 hours Assessment and Plan (1) Stage IV adenocarcinoma of esophagus Narrative/Plan: Continue gradually advancing tube feeds as goal. Keep head of bed elevated. Monitor for aspiration symptoms. Current Visit: No Status: Chronic Code(s): C15.9 - MALIGNANT NEOPLASM OF ESOPHAGUS, UNSPECIFIED SNOMED Code(s): 599220049
[2022-03-18] MEDS ORDERED: MORPHINE ORAL SOLN 10 MG/5 ML CUP PEG/G-TUBE SCH (11:00)
[2022-03-18] MEDS: MORPHINE ORAL SOLN 10 MG/5 ML CUP PEG/G-TUBE SCH ×3 (12:50→20:30)
[2022-03-18 14:09] LABS: Basophils # (A) 0.05 X 10*3/uL (0.00-0.10); Basophils % (A) 0.4 %; Eosinophils # (A) 0.06 X 10*3/uL (0.04-0.35); Eosinophils % (A) 0.5 %; HCT 28.5 % (39.6-50.0); HGB 8.7 g/dL (13.0-17.0); Lymphocytes # (A) 0.96 X 10*3/uL (0.90-5.00); Lymphocytes % (A) 7.4 %; MCH 22.1 pg (27.0-32.0); MCHC 30.5 g/dL (32.0-37.0); MCV 72.5 fL (80.0-97.0); Monocytes # (A) 0.72 X 10*3/uL (0.20-1.00); Monocytes % (A) 5.5 %; NRBC Per 100 WBC 0 /100 WBCS (0.0-0.0); Neutrophils # (A) 11.11 X 10*3/uL (1.80-7.70); Neutrophils % (A) 85.2 %; Platelet Count 529 X 10*3/uL (140-440); RBC 3.93 X 10*6/uL (4.40-5.60); RDW 15.6 % (11.5-14.5); WBC 13.03 X 10*3/uL (4.50-10.00)
--- NOTE | 2022-03-18 14:19 | P.PN ---
Subjective This is a pleasant 57 years old male with history of esophageal cancer and dysphagia since 01/2022, he is following up with Dr. Falk (! hoang) at [facility], patient states that he has follow-up appointment with him in 2 weeks and that his sister has the exact date for his follow-up. He presents because of dyspnea and productive cough and malaise over one week, on chest x- ray he has some evidence of pneumonia and he was started on ceftriaxone and Zithromax but also aspiration is concerned however patient with no fever, he has mild leukocytosis at 13,000. Respiratory Viruses are negative. However reportcalcitonin is mildly elevated 0.30. Patient is not on home oxygen. Also he is currently on normal saline 75 mL/h PEG tube was placed by surgery team and start to feed him today at 10 mL/h 03/18/2012 Patient PEG tube is in place and tube feeding is increased to 40 mL/h this morning and he was tolerating well right now, with planned to go for gall No much respiratory symptoms will address Patient remains on ceftriaxone and Zithromax P chest x-ray in the morning Discontinue IV fluids as PEG tube feeding is a started WBCs stable at 13,000, hemoglobin stable at 8.7. Patient has oncologist [facility] that he plans to follow up within 2 weeks as he states (sister has contact information) Objective - Vital Signs Vital signs: Vital Signs Temp 98.2 F 03/18/22 14:09 Pulse 97 03/18/22 14:09 Resp 20 03/18/22 14:09 BP 123/76 03/18/22 14:09 Pulse Ox 97 03/18/22 14:09 FiO2 Intake & Output 03/17/22 03/18/22 03/18/22 18:59 06:59 18:59 Intake Total 40 238 Output Total 125 200 Balance 40 113 -200 Weight 65.771 kg 64 kg Intake: Tube Feeding 40 238 Output: Urine 125 200 Other: Voiding Method Toilet - Exam GENERAL: The patient is alert and oriented x3, not in any acute distress. Well developed, well nourished. HEENT: Pupils are round and equally reacting to light. EOMI. No scleral icterus. No conjunctival pallor. Normocephalic, atraumatic. No pharyngeal erythema. No thyromegaly. CARDIOVASCULAR: S1 and S2 present. No murmurs, rubs, or gallops. PULMONARY: Chest is clear to auscultation, no wheezing or crackles. -ABDOMEN: Soft, nontender, nondistended, normoactive bowel sounds. No palpable organomegaly. PEG tube in a Place MUSCULOSKELETAL: No joint swelling or deformity. EXTREMITIES: No cyanosis, clubbing, or pedal edema. NEUROLOGICAL: Gross neurological examination did not reveal any focal deficits. SKIN: No rashes. no petechiae. - Labs CBC & Chem 7: 03/18/22 07:49 03/17/22 08:01 Labs: Abnormal Lab Results - Last 24 Hours (Table) 03/18/22 Range/Units 07:49 WBC 13.03 H (4.50-10.00) X 10*3/uL RBC 3.93 L (4.40-5.60) X 10*6/uL Hgb 8.7 L (13.0-17.0) g/dL Hct 28.5 L (39.6-50.0) % MCV 72.5 L (80.0-97.0) fL MCH 22.1 L (27.0-32.0) pg MCHC 30.5 L (32.0-37.0) g/dL RDW 15.6 H (11.5-14.5) % Plt Count 529 H (140-440) X 10*3/uL MPV 9.0 L (9.5-12.2) fL Immature Gran # 0.13 H (0.00-0.04) X 10*3/uL Neutrophils # 11.11 H (1.80-7.70) X 10*3/uL Microbiology - Last 24 Hours (Table) 03/15/22 19:30 Blood Culture - Preliminary Blood No Growth after 48 hours 03/15/22 19:20 Blood Culture - Preliminary Blood No Growth after 48 hours Assessment and Plan Assessment: Chronic dysphagia secondary to esophageal cancer status post PEG tube placement Possible right lower lobe pneumonia, community-acquired. Rule out aspiration pneumonia Dehydration Chronic anemia Plan: Continue with ceftriaxone and Zithromax Continue IV fluid Recheck chest x-ray start PEG tube feedings and advance slowly as tolerated Surgery team consult Labs and medication were reviewed.. Continue same treatment. Continue with symptomatic treatment. Resume home medication. Monitor labs and vitals. DVT and GI prophylaxis. Further recommendations as per clinical course of the patient DVT prophylaxis: Subcutaneous heparin GI Prophylaxis: Ppi Prognosis is guarded
[2022-03-19] MEDS: MORPHINE ORAL SOLN 10 MG/5 ML CUP PEG/G-TUBE SCH ×7 (00:15→20:12)
[2022-03-19] MEDS: HYDROmorphone 1 MG/ML 1 ML SYRINGE IVP PRN ×3 (02:21→23:06)
[2022-03-19] MEDS: SENNOSIDES-DOCUSATE SODIUM 1 EACH TAB PO SCH ×2 (08:24→17:10)
[2022-03-19] MEDS: PANTOPRAZOLE 40 MG/10 ML VIAL IVP SCH (08:46)
[2022-03-19] MEDS: AZITHROMYCIN 500 MG TAB PO SCH (08:47)
[2022-03-19] MEDS: HEPARIN SODIUM,PORCINE/PF 5,000 UNIT/0.5 ML SYRINGE SQ SCH ×2 (08:47→20:13)
--- NOTE | 2022-03-19 09:04 | XR ---
EXAMINATION TYPE: XR chest 1V DATE OF EXAM: 03/19/2022 COMPARISON: 03/15/2022 HISTORY: Shortness of breath TECHNIQUE: Single frontal view of the chest is obtained. FINDINGS: Hyperinflation. Mediport catheter seen. Heart size normal. Right perihilar and lower lobe area of infiltrate. Subsegmental changes left lung base. No pleural effusion or pneumothorax. IMPRESSION: 1. Bilateral lower lobe and perihilar area of infiltrate correlate for pneumonia.
--- NOTE | 2022-03-19 09:08 | P.PN ---
Subjective Progress Note Date: 03/19/22 Principal diagnosis: Malnutrition Patient doing well today. Denies abdominal pain. Tube feeds were held last night for short while because of blood within the gastric aspirate. The volume of residuals was low however. The tube feeds were subsequently restarted. He is tolerating tube feeds at goal currently. Objective - Vital Signs Vital signs: Vital Signs Temp 97.9 F 03/19/22 07:00 Pulse 85 03/19/22 07:00 Resp 20 03/19/22 07:00 BP 120/72 03/19/22 07:00 Pulse Ox 95 03/19/22 07:00 FiO2 Intake & Output 03/18/22 03/19/22 03/19/22 18:59 06:59 18:59 Intake Total 833 1003 Output Total 200 325 Balance 633 678 Weight 57 kg Intake: Tube Feeding 833 1003 Output: Urine 200 325 Other: Voiding Method Toilet - Exam Abdomen: Soft, nondistended, bolster loose and slightly, nontender - Labs CBC & Chem 7: 03/18/22 07:49 03/17/22 08:01 Labs: Abnormal Lab Results - Last 24 Hours (Table) 03/18/22 Range/Units 07:49 WBC 13.03 H (4.50-10.00) X 10*3/uL RBC 3.93 L (4.40-5.60) X 10*6/uL Hgb 8.7 L (13.0-17.0) g/dL Hct 28.5 L (39.6-50.0) % MCV 72.5 L (80.0-97.0) fL MCH 22.1 L (27.0-32.0) pg MCHC 30.5 L (32.0-37.0) g/dL RDW 15.6 H (11.5-14.5) % Plt Count 529 H (140-440) X 10*3/uL MPV 9.0 L (9.5-12.2) fL Immature Gran # 0.13 H (0.00-0.04) X 10*3/uL Neutrophils # 11.11 H (1.80-7.70) X 10*3/uL Microbiology - Last 24 Hours (Table) 03/15/22 19:20 Blood Culture - Preliminary Blood No Growth after 72 hours 03/15/22 19:30 Blood Culture - Preliminary Blood No Growth after 72 hours Assessment and Plan (1) Stage IV adenocarcinoma of esophagus Narrative/Plan: Patient doing well at this time. Tolerating tube feeds at goal. Continue elevating head when utilizing PEG tube. Upon discharge may consider bolus feeds. We'll sign off at this point. I will be out of town. Please reconsult service if needed. Current Visit: No Status: Chronic Code(s): C15.9 - MALIGNANT NEOPLASM OF ESOPHAGUS, UNSPECIFIED SNOMED Code(s): 645150100
[2022-03-19] MEDS ORDERED: guaiFENesin-DM 100-10MG/5ML 10 ML CUP PO PRN (10:15)
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
[2022-03-19 13:56] VITALS: BMI 16.1
[2022-03-19] MEDS: PIPERACILLIN-TAZOBACTAM 3.375 GM in SODIUM CHLORIDE 0.9% 100 ML IVPB SCH (17:14)
--- NOTE | 2022-03-19 20:28 | P.PN ---
Subjective This is a pleasant 57 years old male with history of esophageal cancer and dysphagia since 01/2022, he is following up with Dr. Falk (! hoang) at [facility], patient states that he has follow-up appointment with him in 2 weeks and that his sister has the exact date for his follow-up. He presents because of dyspnea and productive cough and malaise over one week, on chest x- ray he has some evidence of pneumonia and he was started on ceftriaxone and Zithromax but also aspiration is concerned however patient with no fever, he has mild leukocytosis at 13,000. Respiratory Viruses are negative. However reportcalcitonin is mildly elevated 0.30. Patient is not on home oxygen. Also he is currently on normal saline 75 mL/h PEG tube was placed by surgery team and start to feed him today at 10 mL/h 03/18/2012 Patient PEG tube is in place and tube feeding is increased to 40 mL/h this morning and he was tolerating well right now, with planned to go for gall No much respiratory symptoms will address Patient remains on ceftriaxone and Zithromax P chest x-ray in the morning Discontinue IV fluids as PEG tube feeding is a started WBCs stable at 13,000, hemoglobin stable at 8.7. Patient has oncologist [facility] that he plans to follow up within 2 weeks as he states (sister has contact information) 03/19/2022 Patient today was feeling better, while at bed her rest he was denying dyspnea or chest pain, occasional coughing requiring Robitussin. And also patient was cleared for discharge by surgery team however repeat chest x-ray showing persistent pneumonia especially on the right side therefore we consulted pulmon maggy team. His antibiotics was updated from ceftriaxone and to Zosyn. We will keep monitoring. No labs from today. proCalcitonin was 0.30 Objective - Vital Signs Vital signs: Vital Signs Temp 97.9 F 03/19/22 07:00 Pulse 85 03/19/22 07:00 Resp 20 03/19/22 07:00 BP 120/72 03/19/22 07:00 Pulse Ox 95 03/19/22 07:00 FiO2 Intake & Output 03/18/22 03/19/22 03/19/22 18:59 06:59 18:59 Intake Total 833 1003 Output Total 200 325 Balance 633 678 Weight 57 kg 57 kg Intake: Tube Feeding 833 1003 Output: Urine 200 325 Other: Voiding Method Toilet - Exam GENERAL: The patient is alert and oriented x3, not in any acute distress. Well developed, well nourished. HEENT: Pupils are round and equally reacting to light. EOMI. No scleral icterus. No conjunctival pallor. Normocephalic, atraumatic. No pharyngeal erythema. No thyromegaly. CARDIOVASCULAR: S1 and S2 present. No murmurs, rubs, or gallops. PULMONARY: Chest is clear to auscultation, no wheezing or crackles. -ABDOMEN: Soft, nontender, nondistended, normoactive bowel sounds. No palpable organomegaly. PEG tube in a Place MUSCULOSKELETAL: No joint swelling or deformity. EXTREMITIES: No cyanosis, clubbing, or pedal edema. NEUROLOGICAL: Gross neurological examination did not reveal any focal deficits. SKIN: No rashes. no petechiae. - Labs CBC & Chem 7: 03/18/22 07:49 03/17/22 08:01 Labs: Microbiology - Last 24 Hours (Table) 03/15/22 19:20 Blood Culture - Preliminary Blood No Growth after 72 hours 03/15/22 19:30 Blood Culture - Preliminary Blood No Growth after 72 hours Assessment and Plan Assessment: Chronic dysphagia secondary to esophageal cancer status post PEG tube placement Possible right lower lobe pneumonia, community-acquired. Rule out aspiration pneumonia Dehydration Chronic anemia Plan: Continue with Zosyn discontinue IV fluid start PEG tube feedings and advance slowly as tolerated Surgery team consult Labs and medication were reviewed.. Continue same treatment. Continue with symptomatic treatment. Resume home medication. Monitor labs and vitals. DVT and GI prophylaxis. Further recommendations as per clinical course of the patient DVT prophylaxis: Subcutaneous heparin GI Prophylaxis: Ppi Prognosis is guarded
[2022-03-20] MEDS: MORPHINE ORAL SOLN 10 MG/5 ML CUP PEG/G-TUBE SCH ×6 (01:24→20:08)
[2022-03-20] MEDS: PIPERACILLIN-TAZOBACTAM 3.375 GM in SODIUM CHLORIDE 0.9% 100 ML IVPB SCH (01:25)
[2022-03-20] MEDS: HYDROmorphone 1 MG/ML 1 ML SYRINGE IVP PRN ×6 (05:31→23:06)
[2022-03-20] MEDS: HEPARIN SODIUM,PORCINE/PF 5,000 UNIT/0.5 ML SYRINGE SQ SCH ×2 (08:32→20:09)
[2022-03-20] MEDS: AMOXIC-POT CLAV 875-125MG 1 EACH TAB PO SCH ×2 (08:32→20:08)
[2022-03-20] MEDS: PANTOPRAZOLE 40 MG/10 ML VIAL IVP SCH (08:33)
[2022-03-20] MEDS: SENNOSIDES-DOCUSATE SODIUM 1 EACH TAB PO SCH ×2 (08:33→20:08)
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
--- NOTE | 2022-03-20 17:37 | P.PN ---
Subjective This is a pleasant 57 years old male with history of esophageal cancer and dysphagia since 01/2022, he is following up with Dr. Falk (! hoang) at [facility], patient states that he has follow-up appointment with him in 2 weeks and that his sister has the exact date for his follow-up. He presents because of dyspnea and productive cough and malaise over one week, on chest x- ray he has some evidence of pneumonia and he was started on ceftriaxone and Zithromax but also aspiration is concerned however patient with no fever, he has mild leukocytosis at 13,000. Respiratory Viruses are negative. However reportcalcitonin is mildly elevated 0.30. Patient is not on home oxygen. Also he is currently on normal saline 75 mL/h PEG tube was placed by surgery team and start to feed him today at 10 mL/h 03/18/2012 Patient PEG tube is in place and tube feeding is increased to 40 mL/h this morning and he was tolerating well right now, with planned to go for gall No much respiratory symptoms will address Patient remains on ceftriaxone and Zithromax P chest x-ray in the morning Discontinue IV fluids as PEG tube feeding is a started WBCs stable at 13,000, hemoglobin stable at 8.7. Patient has oncologist [facility] that he plans to follow up within 2 weeks as he states (sister has contact information) 03/19/2022 Patient today was feeling better, while at bed her rest he was denying dyspnea or chest pain, occasional coughing requiring Robitussin. And also patient was cleared for discharge by surgery team however repeat chest x-ray showing persistent pneumonia especially on the right side therefore we consulted pulmon maggy team. His antibiotics was updated from ceftriaxone and to Zosyn. We will keep monitoring. No labs from today. proCalcitonin was 0.30 03/20/2022 Patient generally is doing well he has no new symptoms. No respiratory symptoms. He is saturating well on room air. Patient was cleared for discharge by both surgery team and pulmonary team today, he is going to be discharged on oral Augmentin. However patient has PEG tube placed during this admission with tube feeding is running and patient tolerance that's well however his medical insurance provider is refusing to provide coverage for his tube feedings supply because he passed a swallow evaluation. PEG tube was recommended and placed by GI service for his advanced esophageal cancer and aspiration pneumonia. flume worker on the case, and case was discussed with her Objective - Vital Signs Vital signs: Vital Signs Temp 98.1 F 03/20/22 14:36 Pulse 79 03/20/22 14:36 Resp 16 03/20/22 14:36 BP 137/83 03/20/22 14:36 Pulse Ox 100 03/20/22 14:36 FiO2 Intake & Output 03/19/22 03/20/22 03/20/22 18:59 06:59 18:59 Intake Total 200 Output Total 350 Balance -350 200 Weight 57 kg 66.2 kg Intake: Oral 200 Output: Urine 350 Other: Voiding Method Toilet Toilet Urinal Urinal - Exam GENERAL: The patient is alert and oriented x3, not in any acute distress. Well developed, well nourished. HEENT: Pupils are round and equally reacting to light. EOMI. No scleral icterus. No conjunctival pallor. Normocephalic, atraumatic. No pharyngeal erythema. No thyromegaly. CARDIOVASCULAR: S1 and S2 present. No murmurs, rubs, or gallops. PULMONARY: Chest is clear to auscultation, no wheezing or crackles. -ABDOMEN: Soft, nontender, nondistended, normoactive bowel sounds. No palpable organomegaly. PEG tube in a Place MUSCULOSKELETAL: No joint swelling or deformity. EXTREMITIES: No cyanosis, clubbing, or pedal edema. NEUROLOGICAL: Gross neurological examination did not reveal any focal deficits. SKIN: No rashes. no petechiae. - Labs CBC & Chem 7: 03/18/22 07:49 03/17/22 08:01 Labs: Microbiology - Last 24 Hours (Table) 03/15/22 19:30 Blood Culture - Preliminary Blood No Growth after 96 hours 03/15/22 19:20 Blood Culture - Preliminary Blood No Growth after 96 hours Assessment and Plan Assessment: Chronic dysphagia secondary to esophageal cancer status post PEG tube placement most likely patient has aspiration pneumonia Dehydration, improved Esophageal cancer with dysphagia Chronic anemia Plan: patient is cleared for discharge by pulmonary service on Augmentin discontinue IV fluid continue with PEG tube feeding Patient is medically stable for discharge pending his insurance provider to improve his PEG tube feeding supplies Surgery team consultwho cleared the patient for discharge Labs and medication were reviewed.. Continue same treatment. Continue with sym ptomatic treatment. Resume home medication. Monitor labs and vitals. DVT and GI prophylaxis. Further recommendations as per clinical course of the patient DVT prophylaxis: Subcutaneous heparin GI Prophylaxis: Ppi Prognosis is guarded
[2022-03-21] MEDS: MORPHINE ORAL SOLN 10 MG/5 ML CUP PEG/G-TUBE SCH ×3 (00:20→09:15)
[2022-03-21] MEDS: HYDROmorphone 1 MG/ML 1 ML SYRINGE IVP PRN ×4 (02:01→11:52)
[2022-03-21] MEDS: AMOXIC-POT CLAV 875-125MG 1 EACH TAB PO SCH (08:01)
[2022-03-21] MEDS: SENNOSIDES-DOCUSATE SODIUM 1 EACH TAB PO SCH (08:01)
[2022-03-21] MEDS: PANTOPRAZOLE 40 MG/10 ML VIAL IVP SCH (08:01)
[2022-03-21] MEDS: HEPARIN SODIUM,PORCINE/PF 5,000 UNIT/0.5 ML SYRINGE SQ SCH (08:02)
[2022-03-21 08:30] VITALS: BP 135/87; PULSE 80; RESP 16; TEMP 98.2
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
--- NOTE | 2022-03-22 00:46 | P.DS ---
Providers Date of admission: 03/20/22 13:18 Attending physician: Jamaica Briseno Consults: 03/15/22 20:12 Consult Physician Urgent Consulting Provider: Kain Stephen Consult Reason/Comments: eval for J tube - stage IV esophageal cancer Do you want consulting provider notified?: Yes 03/19/22 10:20 Consult Physician Urgent Consulting Provider: Paulette Merchant Consult Reason/Comments: pna Do you want consulting provider notified?: Yes Primary care physician: [facility] Course: Diagnoses: Chronic dysphagia secondary to esophageal cancer status post PEG tube placement most likely patient has aspiration pneumonia Dehydration, improved Esophageal cancer with dysphagia Chronic anemia Hospital course: This is a pleasant 57 years old male with history of esophageal cancer and dysphagia since 01/2022, he is following up with Dr. Falk (! hoang) at [facility], patient states that he has follow-up appointment with him in 2 weeks and that his sister has the exact date for his follow-up. He presents because of dyspnea and productive cough and malaise over one week, on chest x- ray he has some evidence of pneumonia and he was started on ceftriaxone and Zithromax but also aspiration is concerned however patient with no fever, he has mild leukocytosis at 13,000. Respiratory Viruses are negative. However reportcalcitonin is mildly elevated 0.30. Patient showed interval improvement with antibiotic. Pulmonary team on the case Also patient evaluated by GI team for his dysphagia related to his esophageal cancer with PEG tube placed on tube feeding started Patient tolerated procedure well and on the day of discharge his back to his baseline denies any other symptoms, no chest pain or dyspnea, no urinary or GI symptoms. Patient is cleared to go home today by surgery and pulmonary team His supply for PEG tube is already delivered to his house as patient states today Problems and management plan were discussed with the patient and he verbalized understanding and acceptance Patient was found stable and can be discharged home in guarded prognosis however he needs follow-up as an outpatient. Patient was instructed to follow up with PCP Dr. hurtado within one week and patient agrees Patient was instructed to follow up with associate dean Dr. Alan in 1-[address] Roth 2 weeks and he agrees Physical exam Gen: patient is a AAOx3, no distress CVS: S1-S2, RRR, no murmur Lungs: B/L CTA, no wheezing Abdomen: soft, no distention, no tenderness, positive bowel sounds Extremity: no leg edema or induration Time spent more than 35 minutes Patient Condition at Discharge: Fair Plan - Discharge Summary Discharge Rx Participant: No New Discharge Prescriptions: New RX: Amoxic-Pot Clav 875-125Mg [Augmentin 875-125] 1 each PO Q12HR 7 Days #14 tab Continue RX: Prochlorperazine [Compazine] 10 mg PO Q8H PRN PRN Reason: Nausea And Vomiting RX: Ondansetron Odt [Zofran ODT] 8 mg PO Q8HR PRN PRN Reason: Nausea And Vomiting RX: HYDROcodone/APAP 7.5-325MG [[place] 7.5-325] 1 tab PO Q4H PRN PRN Reason: Pain RX: Sennosides/Docusate Sodium [Senna-S 8.6-50 mg Tablet] 1 tab PO BID RX: Pantoprazole Sodium [Protonix] 40 mg PO BID RX: Morphine Sulfate ER [Ms Contin] 15 mg PO TID Discharge Medication List RX: HYDROcodone/APAP 7.5-325MG [[place] 7.5-325] 1 tab PO Q4H PRN 03/15/22 [History] RX: Morphine Sulfate ER [Ms Contin] 15 mg PO TID 03/15/22 [History] RX: Ondansetron Odt [Zofran ODT] 8 mg PO Q8HR PRN 03/15/22 [History] RX: Pantoprazole Sodium [Protonix] 40 mg PO BID 03/15/22 [History] RX: Prochlorperazine [Compazine] 10 mg PO Q8H PRN 03/15/22 [History] RX: Sennosides/Docusate Sodium [Senna-S 8.6-50 mg Tablet] 1 tab PO BID 03/15/22 [History] RX: Amoxic-Pot Clav 875-125Mg [Augmentin 875-125] 1 each PO Q12HR 7 Days #14 tab 03/20/22 [Rx] Follow up Appointment(s)/Referral(s): Kain Stephen MD [Medical Doctor] - 2 Weeks (please call for an appointment ) Paulette Merchant MD [STAFF PHYSICIAN] - 01/16/23 1:00 pm Parisa Babcock MD [Primary Care Provider] - 1-2 days (please call for an appointment ) Darrion Kessler [NON-STAFF] - 1 Week Patient Instructions/Handouts: Community Acquired Pneumonia (DC) Activity/Diet/Wound Care/Special Instructions: continue with PEG tube feeding Activity is restricted till you see your doctor Discharge Disposition: HOME SELF-CARE
== END 2022-03-21 14:26 | disposition home or self-care (01) | DRG 177 ==
LOC: EC 15:19 → 6NMEDSUR 20:12 → OBSVTOIN 03-20 13:18
PROVIDERS: ADMIT Hospitalist; ATTEND Hospitalist
PROC: 3E0G76Z Introduction of Nutritional Substance into Upper GI, Via Natural or Artificial Opening (ICD-10-PCS; 2022-03-16)
PROC: 0DH63UZ Insertion of Feeding Device into Stomach, Percutaneous Approach (ICD-10-PCS; principal; 2022-03-16 08:45)
DX: J69.0 Pneumonitis due to inhalation of food and vomit (principal); E43 Unspecified severe protein-calorie malnutrition; C15.9 Malignant neoplasm of esophagus, unspecified; Z68.1 Body mass index [BMI] 19.9 or less, adult; R13.10 Dysphagia, unspecified; D64.9 Anemia, unspecified; Z20.822 Contact with and (suspected) exposure to COVID-19; Z88.6 Allergy status to analgesic agent; F41.9 Anxiety disorder, unspecified; F32.A Depression, unspecified; E86.0 Dehydration; Z79.899 Other long term (current) drug therapy; Z87.738 Personal history of other specified (corrected) congenital malformations of digestive system; Z87.891 Personal history of nicotine dependence; Z90.81 Acquired absence of spleen; Z92.21 Personal history of antineoplastic chemotherapy; Z92.3 Personal history of irradiation; Z80.42 Family history of malignant neoplasm of prostate; Z80.0 Family history of malignant neoplasm of digestive organs; F90.9 Attention-deficit hyperactivity disorder, unspecified type; Z87.81 Personal history of (healed) traumatic fracture
CPT/HCPCS: 36415; 43246; 71045; 71046; 80048; 80053; 81003; 83605; 83735; 84100; 84145; 85025; 85610; 85730; 87040; 87636; 93005; 96361; 96365; 96366; 96375; 99285

== ENCOUNTER 2022-04-16 13:43 | Inpatient (IN) | payer OTHER ==
[2022-04-16] MEDS ORDERED: SODIUM CHLORIDE 0.9% 1,000 ML IV STA ×3 (15:13→17:55)
[2022-04-16 15:15] LABS: Anisocytosis Slight; Basophils # (A) 0.1 k/uL (0-0.2); Basophils % (A) 0 %; Eosinophils # (A) 0.1 k/uL (0-0.7); Eosinophils % (A) 0 %; HCT 22.4 % (39.0-53.0); Hypochromasia Slight; Lymphocytes # (A) 0.4 k/uL (1.0-4.8); Lymphocytes % (A) 1 %; MCHC 29.6 g/dL (31.0-37.0); MCV 70.8 fL (80.0-100.0); Microcytosis Marked; Monocytes % (A) 3 %; Neutrophils # (A) 34.8 k/uL (1.3-7.7); Neutrophils % (A) 95 %; RBC 3.16 m/uL (4.30-5.90); RDW 17.5 % (11.5-15.5); WBC 36.6 k/uL (3.8-10.6)
[2022-04-16 15:19] LABS: HGB 6.6 gm/dL (13.0-17.5); Platelet Count 922 k/uL (150-450)
[2022-04-16 16:07] LABS: Albumin 2.4 g/dL (3.5-5.0); Calcium 7.8 mg/dL (8.4-10.2); Potassium 4.8 mmol/L (3.5-5.1); Total Bilirubin 0.5 mg/dL (0.2-1.3); Total Protein 5.6 g/dL (6.3-8.2)
[2022-04-16 16:10] LABS: INR 1.3 (<1.2); Partial Thromboplastin Time 28.4 sec (22.0-30.0); Prothrombin Time 13.2 sec (9.0-12.0)
[2022-04-16] MEDS ORDERED: HYDROmorphone 1 MG/ML 1 ML SYRINGE IVP STA (16:23)
[2022-04-16 16:49] LABS: Lactic Acid, Venous 2.7 mmol/L (0.7-2.0)
[2022-04-16] MEDS ORDERED: ONDANSETRON 4 MG/2 ML VIAL IVP STA (16:55)
--- NOTE | 2022-04-16 17:01 | XR ---
EXAMINATION TYPE: XR chest 2V DATE OF EXAM: 04/16/2022 COMPARISON: 03/19/2022 HISTORY: Difficulty breathing TECHNIQUE: 2 views FINDINGS: There is air-fluid level in the left hemithorax related to large hydropneumothorax. There i s some interstitial infiltrate in the right lung. Trachea is midline. Right central venous catheter w ith tip in the superior vena cava. There is consolidation and atelectasis in the left lower lobe. The re are chest leads. Bony thorax is intact. IMPRESSION: Left side large hydropneumothorax with air space consolidation left lower lobe. Hydropneumothorax is a change compared to old exam. Exam was discussed with emergency room attending staff at 5:00 PM.
--- NOTE | 2022-04-16 17:03 | XR ---
EXAMINATION TYPE: XR KUB DATE OF EXAM: 04/16/2022 COMPARISON: NONE HISTORY: Abdominal pain TECHNIQUE: 2 views FINDINGS: Two-view supine were obtained that show no central intestinal obstruction or pneumoperitone um. There is gas down to the rectum. There is left-sided hydropneumothorax. There is infiltrate left lower lobe. There is gastrostomy tube noted. IMPRESSION: Nonacute bowel gas pattern.
[2022-04-16] MEDS ORDERED: METOCLOPRAMIDE 5 MG/ML 2 ML VIAL IVP STA (17:49)
[2022-04-16] MEDS ORDERED: LEVOFLOXACIN 750MG-D5W PMX 750 MG in DEXTROSE/WATER 1 150ML.BAG IVPB STA (17:58)
[2022-04-16] MEDS ORDERED: RX INFO: IV CONTRAST WAS GIVEN 1 EACH MISC MISCELLANE PRN (17:59)
--- NOTE | 2022-04-16 18:53 | CT ---
EXAMINATION TYPE: CT ChestAbdPelvis w con DATE OF EXAM: 04/16/2022 COMPARISON: PET CT scan 06/24/2011 CT abdomen and pelvis 02/10/2022 HISTORY: Chest pain, SOB and abdominal pain. History of esophageal cancer. CT DLP: 772.9 mGycm Automated exposure control for dose reduction was used. CONTRAST: Performed with IV Contrast, patient injected with 100ml mL of Isovue 300. Images obtained from the thoracic inlet to the floor of the pelvis with the IV contrast. There is large left-sided pneumothorax. There is significant atelectasis of the left lung with large left pleural effusion. There is consolidation left lower lobe. The right lung is clear of consolidati on. There is increased soft tissue density in the subcarinal region that could relate to esophageal m ass. This measures almost 3 cm. There is dilated lower esophagus with some fluid extension to the lef t side which could be perforation. There is gastrostomy tube. Gallbladder is intact. There is some he terogeneity in the spleen. There are multiple rounded low density masses in the liver that measure up to 3.5 cm. No sign of pancreatic mass. No adrenal mass. Kidneys show satisfactory contrast opacification. No hydronephrosis. Bladder distend s smoothly. No inguinal hernia. There is bilateral scrotal hydroceles. No evidence of ascites. No nadine dence of a bowel obstruction. No free air. The sternum is intact. Thoracic spine and lumbar spine are intact. No compression fracture. Bony pelv is is intact. IMPRESSION: Multiple liver masses consistent with metastatic disease which are slightly increased compared to 03/2022 exam. Extensive airspace consolidation in the left lower lobe with hydropneumothorax. Increased subcarinal density could relate to esophageal mass or adenopathy and is new compared to PET /CT scan of 06/23/2021. Dilated lower esophagus with fluid level and possible fluid extension and perf oration into the pleural space on the left side which could account for the hydropneumothorax.
--- NOTE | 2022-04-16 19:10 | XR ---
EXAMINATION TYPE: XR chest 1V portable DATE OF EXAM: 04/16/2022 COMPARISON: 3 HISTORY: Short of breath TECHNIQUE: Single view FINDINGS: There is large left-sided hydropneumothorax. There is apparent complete atelectasis of the left lung. Trachea is deviated slightly to the right side right lung is clear of consolidation. There are chest leads. IMPRESSION: Left-sided hydropneumothorax with some tension. Shift of the trachea is increased compare d to exam 2 hours ago.
[2022-04-16 20:10] LABS: Appearance,Urine Clear (Clear); Bilirubin,Urine Negative (Negative); Blood,Urine Negative (Negative); Color,Urine Yellow; Glucose,Urine (UA) Negative (Negative); Ketones,Urine Negative (Negative); Leukocyte Esterase,Urine Negative (Negative); Nitrite,Urine Negative (Negative); Protein,Urine Trace (Negative); Specific Gravity,Urine 1.027 (1.001-1.035); Urobilinogen,Urine <2.0 mg/dL (<2.0)
[2022-04-16] MEDS ORDERED: NALOXONE 0.4 MG/ML 1 ML VIAL IV PRN (20:37)
[2022-04-16] MEDS ORDERED: METOCLOPRAMIDE 5 MG/ML 2 ML VIAL IVP PRN (20:41)
[2022-04-16] MEDS ORDERED: LORazepam 2 MG/ML INJ IV PRN (20:41)
[2022-04-16] MEDS ORDERED: PROMETHAZINE 25 MG TAB PO STA (20:42)
[2022-04-16] MEDS ORDERED: HYDROmorphone 0.5 MG/0.5 ML SYRINGE IVP STA (20:43)
[2022-04-16] MEDS ORDERED: ONDANSETRON 4 MG/2 ML VIAL IVP SCH (20:45)
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
[2022-04-16] MEDS: PANTOPRAZOLE 40 MG/10 ML VIAL IV SCH (22:22)
[2022-04-16] MEDS: SODIUM CHLORIDE 0.9% 1,000 ML IV SCH (23:39)
[2022-04-17] MEDS: ONDANSETRON 4 MG/2 ML VIAL IVP SCH ×3 (02:51→10:48)
[2022-04-17] MEDS: SODIUM CHLORIDE 0.9% 1,000 ML IV SCH ×2 (02:51→13:00)
[2022-04-17] MEDS: HYDROmorphone 1 MG/ML 1 ML SYRINGE IVP PRN ×4 (04:31→13:43)
[2022-04-17] MEDS: PANTOPRAZOLE 40 MG/10 ML VIAL IV SCH (07:51)
[2022-04-17 08:02] VITALS: BP 90/55; PULSE 67; RESP 18; TEMP 97.7
[2022-04-17 11:42] VITALS: BMI 17.9
[2022-04-17] MEDS ORDERED: MORPHINE SULFATE (100 MG/2 ML) 100 MG in SODIUM CHLORIDE 0.9% 100 ML IV SCH (12:45)
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
--- NOTE | 2022-04-17 12:57 | P.DS ---
Providers Date of admission: 04/16/22 20:42 Attending physician: Shen Whitlock Primary care physician: Parisa Babcock [facility] Course: Patient being switched to inpatient hospice please refer to HPI for further details Patient Condition at Discharge: Poor Plan - Discharge Summary Discharge Rx Participant: No New Discharge Prescriptions: No Action Prochlorperazine [Compazine] 10 mg PO Q8H PRN PRN Reason: Nausea And Vomiting Ondansetron Odt [Zofran ODT] 8 mg PO Q8HR PRN PRN Reason: Nausea And Vomiting HYDROcodone/APAP 7.5-325MG [[place] 7.5-325] 1 tab PO Q4H PRN PRN Reason: Pain Sennosides/Docusate Sodium [Senna-S 8.6-50 mg Tablet] 1 tab PO BID Pantoprazole Sodium [Protonix] 40 mg PO BID QUEtiapine [SEROquel] 25 mg PO HS Ferrous Sulfate [Feosol] 325 mg PO DAILY Morphine Sulfate [Ms Contin] 30 mg PO Q12HR Discharge Medication List HYDROcodone/APAP 7.5-325MG [[place] 7.5-325] 1 tab PO Q4H PRN 03/15/22 [History] Ondansetron Odt [Zofran ODT] 8 mg PO Q8HR PRN 03/15/22 [History] Pantoprazole Sodium [Protonix] 40 mg PO BID 03/15/22 [History] Prochlorperazine [Compazine] 10 mg PO Q8H PRN 03/15/22 [History] Sennosides/Docusate Sodium [Senna-S 8.6-50 mg Tablet] 1 tab PO BID 03/15/22 [History] Ferrous Sulfate [Feosol] 325 mg PO DAILY 04/17/22 [History] Morphine Sulfate [Ms Contin] 30 mg PO Q12HR 04/17/22 [History] QUEtiapine [SEROquel] 25 mg PO HS 04/17/22 [History] Follow up Appointment(s)/Referral(s): Parisa Babcock MD [Primary Care Provider] - 1-2 days
[2022-04-17] MEDS ORDERED: LEVOFLOXACIN 500MG-D5W PMX 500 MG in DEXTROSE/WATER 1 100ML.BAG IVPB SCH (19:00)
== END 2022-04-17 15:01 | disposition hospice, inpatient (51) | DRG 871 ==
LOC: EC 13:43 → 3SCARD 20:42 → 5NMEDONC 21:25
PROVIDERS: ADMIT Internal Medicine; ATTEND Internal Medicine
DX: A41.9 Sepsis, unspecified organism (principal); D61.1 Drug-induced aplastic anemia; K22.3 Perforation of esophagus; C15.9 Malignant neoplasm of esophagus, unspecified; C78.7 Secondary malignant neoplasm of liver and intrahepatic bile duct; C78.00 Secondary malignant neoplasm of unspecified lung; E87.1 Hypo-osmolality and hyponatremia; I47.20 Ventricular tachycardia, unspecified; J94.2 Hemothorax; N17.9 Acute kidney failure, unspecified; E87.20 Acidosis, unspecified; Z20.822 Contact with and (suspected) exposure to COVID-19; R65.20 Severe sepsis without septic shock; Z51.5 Encounter for palliative care; Z66 Do not resuscitate; D64.81 Anemia due to antineoplastic chemotherapy; T38.6X5A Adverse effect of antigonadotrophins, antiestrogens, antiandrogens, not elsewhere classified, initial encounter; E87.70 Fluid overload, unspecified; X58.XXXA Exposure to other specified factors, initial encounter; E87.8 Other disorders of electrolyte and fluid balance, not elsewhere classified; F32.A Depression, unspecified; F41.9 Anxiety disorder, unspecified; F90.9 Attention-deficit hyperactivity disorder, unspecified type; I48.91 Unspecified atrial fibrillation; K22.89 Other specified disease of esophagus; Z79.899 Other long term (current) drug therapy; Z92.21 Personal history of antineoplastic chemotherapy; Z92.3 Personal history of irradiation
CPT/HCPCS: 36415; 36430; 71045; 71046; 71260; 74018; 74177; 80053; 81003; 82140; 82150; 82272; 83605; 83690; 83880; 84484; 85025; 85610; 85730; 86850; 86900; 86901; 86920; 87040; 87636; 93005; 96361; 96365; 96375; 99291; 99292

== ENCOUNTER 2022-04-17 15:01 | Inpatient (IN) | payer OTHER ==
[2022-04-17] MEDS ORDERED: ATROPINE OPHTH SOLN 1% 5ML BTL SUBLINGUAL PRN (17:43)
[2022-04-17] MEDS ORDERED: haloperidoL 1 MG TAB PO PRN (17:43)
[2022-04-17] MEDS ORDERED: ACETAMINOPHEN TAB 325 MG TAB PO PRN (17:43)
[2022-04-17] MEDS ORDERED: ONDANSETRON 4 MG/2 ML VIAL IVP PRN (17:43)
[2022-04-17] MEDS ORDERED: LORazepam 2 MG/ML INJ IV PRN (17:43)
[2022-04-17] MEDS ORDERED: SODIUM CHLORIDE 0.9% 1,000 ML IV SCH (17:45)
[2022-04-17] MEDS ORDERED: bisacodyL 10 MG SUPP RECTAL PRN (17:47)
[2022-04-17] MEDS ORDERED: MORPHINE SULFATE (100 MG/2 ML) 100 MG in SODIUM CHLORIDE 0.9% 100 ML IV SCH (18:15)
[2022-04-17] MEDS: HYDROmorphone 1 MG/ML 1 ML SYRINGE IVP PRN ×2 (20:57→23:09)
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
--- NOTE | 2022-04-18 11:58 | P.DS ---
Providers Date of admission: 04/17/22 15:01 Attending physician: Shen Whitlock Primary care physician: [facility] Course: Patient with advanced esophageal cancer on. Her radiation therapy admitted for esophageal rupture and hydropneumothorax severe sepsis subsequently switched to inpatient hospice patient . Please refer to nursing documentation for time of . Preliminary cause of : Esophageal rupture, mediastinitis hydropneumothorax Plan - Discharge Summary New Discharge Prescriptions: No Action Prochlorperazine [Compazine] 10 mg PO Q8H PRN PRN Reason: Nausea And Vomiting Ondansetron Odt [Zofran ODT] 8 mg PO Q8HR PRN PRN Reason: Nausea And Vomiting HYDROcodone/APAP 7.5-325MG [[place] 7.5-325] 1 tab PO Q4H PRN PRN Reason: Pain Sennosides/Docusate Sodium [[place]-S 8.6-50 mg Tablet] 1 tab PO BID Pantoprazole Sodium [Protonix] 40 mg PO BID QUEtiapine [SEROquel] 25 mg PO HS Ferrous Sulfate [Feosol] 325 mg PO DAILY Morphine Sulfate [Ms Contin] 30 mg PO Q12HR Discharge Medication List HYDROcodone/APAP 7.5-325MG [[place] 7.5-325] 1 tab PO Q4H PRN 03/15/22 [History] Ondansetron Odt [Zofran ODT] 8 mg PO Q8HR PRN 03/15/22 [History] Pantoprazole Sodium [Protonix] 40 mg PO BID 03/15/22 [History] Prochlorperazine [Compazine] 10 mg PO Q8H PRN 03/15/22 [History] Sennosides/Docusate Sodium [[place]-S 8.6-50 mg Tablet] 1 tab PO BID 03/15/22 [History] Ferrous Sulfate [Feosol] 325 mg PO DAILY 04/17/22 [History] Morphine Sulfate [Ms Contin] 30 mg PO Q12HR 04/17/22 [History] QUEtiapine [SEROquel] 25 mg PO HS 04/17/22 [History] Discharge Disposition: - Preliminary Cause of Preliminary Cause of : Esophageal rupture
== END 2022-04-18 02:27 | disposition expired | DRG 951 ==
LOC: 5NMEDONC 15:01
PROVIDERS: ADMIT Internal Medicine; ATTEND Internal Medicine
DX: Z51.5 Encounter for palliative care (principal); A41.9 Sepsis, unspecified organism; J98.51 Mediastinitis; K22.3 Perforation of esophagus; R65.20 Severe sepsis without septic shock; C15.9 Malignant neoplasm of esophagus, unspecified; E87.1 Hypo-osmolality and hyponatremia; I47.20 Ventricular tachycardia, unspecified; J94.8 Other specified pleural conditions; N17.9 Acute kidney failure, unspecified; D64.81 Anemia due to antineoplastic chemotherapy; T38.6X5A Adverse effect of antigonadotrophins, antiestrogens, antiandrogens, not elsewhere classified, initial encounter; D63.0 Anemia in neoplastic disease; Z66 Do not resuscitate; E86.1 Hypovolemia; E87.70 Fluid overload, unspecified; F32.A Depression, unspecified; F90.9 Attention-deficit hyperactivity disorder, unspecified type; K22.89 Other specified disease of esophagus; F41.9 Anxiety disorder, unspecified; Z79.899 Other long term (current) drug therapy; Z85.01 Personal history of malignant neoplasm of esophagus; Z87.891 Personal history of nicotine dependence; Z92.21 Personal history of antineoplastic chemotherapy; Z92.3 Personal history of irradiation; Z79.82 Long term (current) use of aspirin; Z87.828 Personal history of other (healed) physical injury and trauma; Z87.81 Personal history of (healed) traumatic fracture; X58.XXXA Exposure to other specified factors, initial encounter